=== PATIENT | male | born 1950 | race Caucasian/White ===

== ENCOUNTER 2017-04-06 00:10 | Inpatient (IN) ==
[2017-04-06] MEDS ORDERED: CARDIZEM IV ONE (00:35)
--- NOTE | 2017-04-06 00:45 | EKG Report ---
Test Performed on : 04/06/2017 00:26:04 AM Test Reason : CP Blood Pressure : / mmHG Vent. Rate : 137 BPM Atrial Rate : 136 BPM P-R Int : 000 ms QRS Dur : 142 ms QT Int : 356 ms P-R-T Axes : 000 -79 090 degrees QTc Int : 537 ms Atrial fibrillation. with rapid ventricular response. Left axis deviation Left ventricular hypertrophy with QRS widening T wave abnormality, consider lateral ischemia Abnormal ECG No previous ECGs available Unconfirmed Result
[2017-04-06 00:58] LABS: ALBUMIN 4.6 g/dL (3.5-5.0); CALCIUM 10.1 mg/dL (8.8-10.2); POTASSIUM 3.9 mmol/L (3.5-5.1); TOTAL BILIRUBIN 0.3 mg/dL (0.20-1.00); TOTAL PROTEIN 7.6 g/dL (6.3-8.3)
--- NOTE | 2017-04-06 03:44 | EKG Report ---
Test Performed on : 04/06/2017 03:17:06 AM Test Reason : pain Blood Pressure : / mmHG Vent. Rate : 114 BPM Atrial Rate : 119 BPM P-R Int : 000 ms QRS Dur : 138 ms QT Int : 364 ms P-R-T Axes : 000 -74 092 degrees QTc Int : 501 ms Wide QRS rhythm. Left axis deviation Left ventricular hypertrophy with QRS widening and repolarization abnormality Inferior infarct , age undetermined Abnormal ECG When compared with ECG of 06-APR-2017 00:26, (Unconfirmed) Wide QRS rhythm. has replaced Atrial fibrillation. Unconfirmed Result
[2017-04-06] MEDS ORDERED: TYLENOL PO PRN (04:11)
[2017-04-06] MEDS ORDERED: NS 1,000 ML IV ONE (04:11)
[2017-04-06] MEDS ORDERED: CARDIZEM 100 MG/NS 100 MG/100 ML IVPB IV SCH ×2 (04:24→10:18)
--- NOTE | 2017-04-06 04:33 | PROVIDER DOCUMENTATION ---
This chart was entered by Elinor Bailey Scribe, acting as scribe for Israel Seymour MD. HPI-Chest Pain - General Chief Complaint: Chest Pain Stated Complaint: CHEST PAIN Time Seen by Provider: 04/06/17 00:27 Source: patient - History of Present Illness-CP Nature of Presenting Problem: 66 year old M presents to the ED with a cc of palpitations and shortness of breath. Pt states that he did develop some chest pains but that has since resolved. PT states that he was sitting on couch watching TV at onset. Pt has a hx of A-Fib. Location: reports: substernal Quality of Pain: reports: aching Severity in ED: mild Onset/Duration: this evening Timing: gone now Context/Activities at Onset: reports: none Similar Symptoms Previously?: No Recently Seen Here or By Another Healthcare Provider: No Review of Systems - Adult - REVIEW OF SYSTEMS - ADULT Constitutional: denies: chills, fever Eyes: reports: no symptoms reported Ears, Nose, Mouth & Throat: reports: no symptoms reported Cardiovascular: reports: chest pain, palpitations Respiratory: reports: shortness of breath. denies: cough Gastrointestinal: reports: no symptoms reported Genitourinary: reports: no symptoms reported Musculoskeletal: reports: no symptoms reported Integumentary: reports: no symptoms reported Neurological: reports: no symptoms reported Psychiatric: reports: no symptoms reported Endocrine: reports: no symptoms reported Hematologic/Lymphatic: reports: no symptoms reported Allergic/Immunologic: reports: no symptoms reported All Other Systems: Reviewed and Negative Past History - Adult - PAST MEDICAL HISTORY-ADULT Review of Records: reports: Nursing Assessment Review, Medications Reviewed Major Childhood Illnesses: reports: denies history Cardiovascular: reports: A-Fib, HTN Endocrine/Immune: reports: Diabetes - IMMUNIZATION STATUS Childhood Immunizations: See Nurse Assessment Flu Vaccine: See Nurse Assessment - SOCIAL HISTORY Smoking: quit greater than 1 year Substance Use: none/never Alcohol Use Frequency: occasionally Physical Exam-General - PHYSICAL EXAM-ADULT Initial Vital Signs Reviewed: Yes - CONSTITUTIONAL General Appearance: appears well, alert, no apparent distress - RESPIRATORY Respiratory: chest non-tender, lungs clear, normal breath sounds - CARDIOVASCULAR Cardiovascular: tachycardia, irregularly irregular - GASTROINTESTINAL (ABDOMEN) Abdominal Exam: normal bowel sounds, non tender, soft - SKIN Integumentary: normal color, normal turgor, warm/dry - PSYCHIATRIC Psych/Mental Status: normal mood/affect, normal thought content, normal thought process, oriented x 3 Progress - PLAN OF CARE/RESULTS Progress/Plan/Lab Results: Vital Signs - 8 hr 04/06/17 00:14 Temperature 97.2 F L Pulse Rate 128 H Respiratory Rate 25 H Blood Pressure 137/94 O2 Sat by Pulse Oximetry 97 Laboratory Results - last 24 hr 04/06/17 04/06/17 04/06/17 00:30 00:30 00:30 Sodium 136 Potassium 3.9 Chloride 95 L Carbon Dioxide 26 Anion Gap 15 BUN 30 H Creatinine 1.2 Estimated GFR/1.73 m2 60 BUN/Creatinine Ratio 25 Glucose 212 H Calculated Osmolality 284 Calcium 10.1 Total Bilirubin 0.30 AST 12 ALT 12 Alkaline Phosphatase 98 Creatine Kinase 81 Troponin T [id number]-[id number] Pept 264 H Total Protein 7.6 Albumin 4.6 Globulin 3.0 Albumin/Globulin Ratio 2.0 04/06/17 04/06/17 04/06/17 00:30 03:15 03:15 Sodium Potassium Chloride Carbon Dioxide Anion Gap BUN Creatinine Estimated GFR/1.73 m2 BUN/Creatinine Ratio Glucose Calculated Osmolality Calcium Total Bilirubin AST ALT Alkaline Phosphatase Creatine Kinase 68 Troponin T < 0.010 < 0.010 Wma-N-Ojllmyitwyj Pept Total Protein Albumin Globulin Albumin/Globulin Ratio Orders Category Date Time Status Admit - [facility] Routine AdmDCTranf 04/06/17 04:11 Ordered Vital Signs Order Q 4-HR ASSESS Care 04/06/17 04:11 Active NPO Diet 04/06/17 04:13 Active CHEST-2 VIEWS [RAD] Stat Exams 04/06/17 00:23 Taken Asha [MYOCARDIAL PERF SCAN, STR/REST] [NM] Stat Exams 04/06/17 04:23 Ordered CBC WITH ELECTRONIC DIFF [HEME] Routine Lab 04/07/17 06:00 Ordered CK PROFILE [SP CHEM] Q8H Lab 04/06/17 00:30 Completed CK PROFILE [SP CHEM] Q8H Lab 04/06/17 08:30 Ordered CK PROFILE [SP CHEM] Q8H Lab 04/06/17 16:30 Ordered CK PROFILE [SP CHEM] Stat Lab 04/06/17 03:15 Completed CK PROFILE [SP CHEM] Timed Lab 04/06/17 07:15 Ordered COMPREHENSIVE METABOLIC PANEL [CHEM] Stat Lab 04/06/17 00:30 Completed DIRECT LDL [LIPIDS] Routine Lab 04/07/17 06:00 Ordered PRO B-NATRIURETIC PEPTIDE Stat Lab 04/06/17 00:30 Completed TROPONIN T Q8H Lab 04/06/17 00:30 Completed TROPONIN T Q8H Lab 04/06/17 08:30 Ordered TROPONIN T Q8H Lab 04/06/17 16:30 Ordered TROPONIN T Stat Lab 04/06/17 03:15 Completed TROPONIN T Timed Lab 04/06/17 07:15 Ordered 0.9% Sodium Chloride Inj [Ns] 1,000 ml Med 04/06/17 04:11 Active IV 150 mls/hr Acetaminophen [Tylenol] Med 04/06/17 04:11 Active 650 mg PO Q6H PRN PRN Aspirin Med 04/06/17 09:00 Ordered 325 mg PO DAILY Diltiazem 100 mg/Ns [Cardizem 100 mg/Ns] Med 04/06/17 04:24 Ordered 100 mg in 100 ml IV 5 mg/hr Diltiazem [Cardizem] Med 04/06/17 00:35 Discontinued 10 mg IV NOW ONE Flecainide [Tambocor] Med 04/06/17 09:00 Ordered 100 mg PO BID LISINOpril [Prinivil] Med 04/06/17 09:00 Ordered 20 mg PO DAILY LOVAstatin [Mevacor] Med 04/06/17 09:00 Ordered 40 mg PO DAILY Metoprolol Succinate E.r. [Toprol Xl] Med 04/06/17 09:00 Ordered 50 mg PO DAILY Telemetry [OM.EQ] Routine Oth 04/06/17 04:11 Active EKG [EKG] Stat Ther 04/06/17 00:22 Draft EKG [EKG] Stat Ther 04/06/17 03:04 Draft EKG [EKG] Stat Ther 04/06/17 07:15 Ordered Result Diagrams: 04/06/17 00:30 - EKG 1 Time of EKG reading by physician:: 00:26 EKG Read and Signed by:: Israel Seymour EKG Interpretation (*Must complete 3 of following elements*): Abnormal Rate: 137 Rhythm: A-fib with RVR Lyons: left QRS: LVH ST Wave: non-specific ST changes (T wave abnormality, consider lateral ischemia) 2 Time of EKG reading by physician:: 03:20 EKG Interpretation (*Must complete 3 of following elements*): Abnormal Rate: 114 Rhythm: regular wide based tachycardia Lyons: left QRS: NSIVCD, poor R wave progression ST Wave: normal - XRAY 1 XRAY Study: Chest Impression: Normal Departure - Departure Time of Disposition Decision: 04:08 DIAGNOSIS: Chest pain Qualifiers: Chest pain type: unspecified Qualified Code(s): R07.9 - Chest pain, unspecified Afib Qualifiers: Atrial fibrillation type: unspecified Qualified Code(s): I48.91 - Unspecified atrial fibrillation Disposition: ADMITTED INPATIENT 09 Certified Medical Emergency: Emergent Condition: Stable - Critical Care Note This patient required my direct & personal management of CC.: No This chart was documented by the indicated scribe, (Elinor Bailey Scribe) and accurately reflects the services I performed and decisions made by me, Israel Seymour MD, as attested by the provider's signature.
--- NOTE | 2017-04-06 06:02 | Diag Imaging Result Doc PS360 ---
EXAM: CHEST-2 VIEWS HISTORY: Chest Pain TECHNIQUE: COMPARISON: None. FINDINGS: The lungs are hyperexpanded. The heart is not enlarged. Pulmonary vessels are small. Mild increased AP diameter to the chest. No pleural effusions. No pneumonia. No free air beneath the diaphragm. IMPRESSION: Emphysema Electronically signed by Rene Balbuena 04/06/2017 6:00 AM
--- NOTE | 2017-04-06 06:14 | EKG Report ---
Test Performed on : 04/06/2017 06:06:22 AM Test Reason : cp, third set Blood Pressure : / mmHG Vent. Rate : 115 BPM Atrial Rate : 115 BPM P-R Int : 150 ms QRS Dur : 138 ms QT Int : 362 ms P-R-T Axes : 000 -76 086 degrees QTc Int : 500 ms Sinus tachycardia. Left axis deviation Nonspecific intraventricular block Abnormal ECG When compared with ECG of 06-APR-2017 03:17, Sinus rhythm. has replaced Wide QRS rhythm. Confirmed by Israel Seymour MD ([id number]) on 04/07/2017 9:58:47 PM
[2017-04-06] MEDS ORDERED: TOPROL XL PO SCH (09:00)
[2017-04-06] MEDS ORDERED: ASPIRIN PO SCH (09:00)
[2017-04-06] MEDS ORDERED: TAMBOCOR PO SCH ×2 (09:00→21:00)
[2017-04-06] MEDS ORDERED: PRINIVIL PO SCH (09:00)
[2017-04-06 09:57] LABS: MANUAL DIFF NEEDED? NO
--- NOTE | 2017-04-06 10:01 | EKG Report ---
Test Performed on : 04/06/2017 09:54:03 AM Test Reason : a.fib r/o - pt on Cardizem GTT Blood Pressure : / mmHG Vent. Rate : 129 BPM Atrial Rate : 125 BPM P-R Int : 000 ms QRS Dur : 134 ms QT Int : 356 ms P-R-T Axes : 000 -78 088 degrees QTc Int : 521 ms Atrial fibrillation. with rapid ventricular response. Left axis deviation Nonspecific intraventricular block Abnormal ECG When compared with ECG of 06-APR-2017 09:53, (Unconfirmed) No significant change was found Confirmed by Israel Seymour MD ([id number]) on 04/07/2017 9:52:52 PM
[2017-04-06 10:08] LABS: BASO% 0.5 % (0.0-0.8); EOS# 0.16 X1000 (0.0-0.7); EOS% 1.9 % (0.0-10.0); HEMATOCRIT 43.3 % (42.0-52.0); HEMOGLOBIN 14.6 g/dL (14.0-18.0); IMM GRAN# 0.02 X1000 (0.0-0.04); IMM GRAN% 0.2 % (0.0-0.5); LYMPH# 2.31 X1000 (1.2-3.4); LYMPH% 28.1 % (20.5-51.1); MCH 31.8 PG (27-31); MCHC 33.7 g/dL (33-37); MCV 94.3 FL (81-99); MONO# 0.59 X1000 (0.11-0.59); MONO% 7.2 % (1.7-9.3); NEUT% 62.1 % (42.2-75.2); PLT 134 X1000 (130-400); RBC 4.59 XMIL (4.7-6.1)
[2017-04-06] MEDS ORDERED: IMDUR PO SCH (10:30)
[2017-04-06 10:40] LABS: AGAP 12; ALBUMIN 4.1 g/dL (3.5-5.0); ALKALINE PHOSPHATASE 90 U/L (32-122); BUN 27 mg/dL (8-22); CALCIUM 9.9 mg/dL (8.8-10.2); CHLORIDE 99 mmol/L (98-107); COSMO 285; GOT 12 U/L (10-34); GPT 11 U/L (10-44); POTASSIUM 4.6 mmol/L (3.5-5.1); SODIUM 136 mmol/L (136-145); TCO2 26 mmol/L (25-35); TOTAL PROTEIN 6.9 g/dL (6.3-8.3)
[2017-04-06] MEDS: GLUCOPHAGE PO SCH ×2 (11:03→16:48)
[2017-04-06] MEDS: AMARYL PO SCH ×2 (11:03→16:48)
[2017-04-06] MEDS ORDERED: LOVENOX SUBQ SCH (11:30)
--- NOTE | 2017-04-06 12:07 | HISTORY AND PHYSICAL ---
CHIEF COMPLAINT: Chest pain, palpitations. HISTORY OF PRESENT ILLNESS: This is a 66-year-old male with atrial fibrillation who presents with palpitations, shortness of breath, and chest pain. He has had some intermittent chest pains, mostly on the left side, radiating to his neck and back. He was just at rest. Apparently, he takes aspirin 325 twice a day because he felt that it was helping his chest pains. He did come in with atrial fibrillation with rapid ventricular response and had been placed on a Cardizem drip, from which now he has spontaneously converted back to a normal sinus rhythm; however, initially, he had not, and his chest pains have improved since he has been rate controlled and rhythm controlled. He had a stress test, he says, about 2 years ago and it was negative. Apparently, he has been due to get a stress test, but reportedly I think he has been reluctant because he is concerned he probably does have coronary artery disease, but he is very against getting a cardiac catheterization because apparently his underwent that procedure, possibly even cardiothoracic surgery, and she during the process, so he is very reluctant to pursue instrumentation. Patient admitted for atrial fibrillation with RVR and chest pain. PAST MEDICAL HISTORY: 1. Atrial fibrillation. 2. Diabetes. 3. Hypertension. 4. Dyslipidemia. PAST SURGICAL HISTORY: I do not think he has had any major events. SOCIAL HISTORY: He does smoke. He says he smokes. According to this, it says he quit over a year ago, but he says he smokes a pack a day and he has done that for 40 years, so I am not sure. He occasionally uses alcohol, about 3-4 beers at a time, maybe on a weekly basis. ALLERGIES: No known drug allergies. MEDICATIONS: Aspirin 81 b.i.d., so maybe he only takes 81 b.i.d. Lipitor 20 daily. Wellbutrin 150 daily. Tambocor 100 b.i.d. Glimepiride 4 b.i.d. Imdur 30 daily. Meloxicam 7.5 daily. Glucophage 1 g b.i.d. Toprol-XL 50 daily. REVIEW OF SYSTEMS: Otherwise negative on 10-point review of systems. FAMILY HISTORY: Positive for CAD in mother, father, 2 brothers, and a sister. Multiple family members with CAD in their early 40s to 50s. PHYSICAL EXAMINATION: VITAL SIGNS: Blood pressure 112/53, heart rate 64, respiratory rate 27, temperature 98 degrees, and 94% on room air. LABORATORY DATA: Normal CBC. Normal CMP. proBNP is only 264. Glucose was 240. EKG showed atrial fibrillation with rapid ventricular response on admission and it looks like LVH. EKG now showed kind of like a left bundle-type pattern, but we will follow in any case. ASSESSMENT: 1. A 66-year-old male who came in with atrial fibrillation with rapid ventricular response and chest pains. He is admitted for treatment. He appears to be rate controlled and rhythm controlled now on Tambocor and Toprol. I have added low-dose Cardizem until Cardiology can evaluate. We will obtain an echo and follow. I strongly encouraged him to get evaluated with a stress test. He wants to go home. If he is stable this afternoon, we will discuss with Cardiology about that plan. 2. Diabetes. Continue his regular medications and follow. 3. Hypertension. Appears to be stable. 4. Chest pain. Again, he has multiple risk factors; diabetes, smoker, family history. He is already on aspirin. EKG is abnormal, but I do not think this is changed from baseline, but I would say his CONI score is at least greater than 3 and I think noninvasive imaging is recommended, but we will follow accordingly. Again, the patient has some barriers to completing that care because of history associated with the testing, but, in any case, the patient is stable. cc: MD Dr. Tacho Ontiveros in [place]
[2017-04-06] MEDS: CARDIZEM PO SCH ×2 (13:19→16:48)
--- NOTE | 2017-04-06 14:35 | EKG Report ---
Test Performed on : 04/06/2017 11:00:13 AM Test Reason : rhythm change Blood Pressure : / mmHG Vent. Rate : 062 BPM Atrial Rate : 062 BPM P-R Int : 232 ms QRS Dur : 140 ms QT Int : 434 ms P-R-T Axes : 083 -76 082 degrees QTc Int : 440 ms Sinus rhythm. with 1st degree AV block. Left axis deviation Nonspecific intraventricular block Abnormal ECG When compared with ECG of 06-APR-2017 09:54, (Unconfirmed) Sinus rhythm. has replaced Atrial fibrillation. Vent. rate has decreased BY 67 BPM Confirmed by Israel Seymour MD ([id number]) on 04/07/2017 9:51:46 PM
--- NOTE | 2017-04-06 15:04 | ECHO REPORT ---
ORDER DATE: 04/06/2017 Technically suboptimal study. Very poor acoustic window. ECHOCARDIOGRAPHIC MEASUREMENTS: 1. Interventricular septum 1.4. Left ventricular posterior wall 1.3. Diastolic diameter 3.7. Left atrium 4. Aorta 3.1. 2. Aortic valve leaflets were sclerosed, not well visualized, trileaflet. 3. Pulmonic valve was normal. There is trace pulmonary regurgitation. 4. Normal left ventricular cavity size. Estimated ejection fraction of 55%. Endocardium not well visualized in all views. Tricuspid valve was normal. Mitral valve leaflets mildly thickened. There was moderate mitral annular calcification. 5. There is mild mitral regurgitation. 6. Peak velocity across the aortic valve less than 2 m/sec. There is no aortic stenosis. There is aortic sclerosis associated with mild aortic regurgitation. Mild tricuspid regurgitation noted. Peak velocity across the tricuspid valve was 2.9 m/sec. Pulmonary artery systolic pressure 42 mmHg. 7. There is no pericardial effusion or obvious intracardiac mass or thrombus seen. cc: MD Ben Faith MD
[2017-04-06 15:07] VITALS: BP 98/44
--- NOTE | 2017-04-06 17:20 | CONSULTATION ---
DATE OF CONSULTATION: 04/06/2017 INDICATION FOR THE CONSULTATION: Atrial fibrillation with rapid ventricular response and chest pain. HISTORY OF PRESENT ILLNESS: Mr. Titus is a 66-year-old white male with a history of paroxysmal atrial fibrillation maintained on flecainide as an outpatient. He previously saw some physician over at the [facility], but has not been back to see them in the last 2-3 years. He previously was on warfarin, but for some reason he is no longer on that medication. He subsequently presented for evaluation of heart racing and chest discomfort that began last night while he was lying on the couch. He said it felt like some tightness and he had some heart racing. He presented to the ER and was found to be in what appears to be atrial fibrillation with a rate of 137 beats per minute. He has a baseline nonspecific intraventricular conduction delay, which appears more of a left bundle type pattern. He subsequently was admitted to the ICU placed on a diltiazem infusion, resumed back on his flecainide and he converted back to sinus rhythm on his own. Today he is not interested in having any further testing. He is not interested in having stress testing nor is he interested in having a heart catheterization. He seems to be aware that this limits our ability to diagnose the etiology of chest pain, but says he is not really interested in having any of those things done. He is not interested in initiating anticoagulation either, even knowing the risk of stroke associated with atrial fibrillation. PAST MEDICAL HISTORY: His past medical history is significant for: 1. Hypertension. 2. Diabetes. 3. Paroxysmal atrial fibrillation. 4. Hyperlipidemia. SOCIAL HISTORY: He does smoke. He occasionally uses alcohol, roughly 3-4 drinks on a weekly basis. FAMILY HISTORY: Significant for coronary disease in mother and father as well as siblings. REVIEW OF SYSTEMS: A 10 system review of systems is negative except for those things mentioned in HPI. PHYSICAL EXAMINATION: Vital signs: He is afebrile. His heart rate is 67. His blood pressure is 98/44. General: He is in no acute distress. HEENT: Oropharynx is moist. Normal dentition. Eye examination is pink conjunctivae, white sclerae. Neck: Examination shows no obvious thyromegaly or thyroid tenderness. Cardiovascular: He is in a regular rate and rhythm presently. He has no lower extremity edema. No carotid bruits. Chest: Exam is clear to auscultation bilaterally. He has no increased work of breathing. Abdomen: Soft, nontender, nondistended. He has no obvious organomegaly. Skin: Warm and dry throughout. Neurological: He is moving all extremities well. Cranial nerves 2-12 are intact without any sensation deficits. Psychiatric: He is alert, oriented, pleasant. He has normal mood and affect. PERTINENT DATA: His EKG on presentation shows atrial fibrillation, rate of 137 beats per minute. He does have a nonspecific intraventricular conduction delay. His final EKG checked here today shows sinus rhythm. Again, baseline nonspecific intraventricular conduction delay. He had an echocardiogram which demonstrated mild left ventricular hypertrophy, normal EF with no evidence of aortic stenosis, RV systolic pressure of 42, mild mitral regurgitation. He had a chest x-ray done, which showed emphysematous changes. His laboratory data was reviewed. White count 8.2, hematocrit 43. Sodium 136, BUN 27, creatinine 0.9. Cardiac enzymes negative. ProBNP 264. ASSESSMENT: 1. Chest discomfort. 2. Paroxysmal atrial fibrillation. PLAN: The patient is not interested in having any sort of stress testing or cardiac catheterization. This seems to stem from issues his had during coronary bypass surgery, which ultimately led to her passing away around a week later. He seems somewhat depressed, but is not suicidal presently. He is not interested in having any further evaluation, but would be willing to follow up with me in the office. I will plan on seeing him in 1-2 weeks. I would continue him on the current medications. He is not interested in having anticoagulation initiated presently, so I would just continue him on the current aspirin. We will discuss this further with him as an outpatient and hopefully we can get him to at least consent to some noninvasive testing because I do think it would be reasonable to do a stress test, considering his medical history and his complaints, but presently considering he is not interested in having these done, I do not see the necessity to keep him in the hospital presently. cc: Fabrice Elmore MD
[2017-04-06] MEDS ORDERED: MEVACOR PO SCH (21:00)
[2017-04-07] MEDS ORDERED: WELLBUTRIN XL PO SCH (09:00)
[2017-04-07] MEDS ORDERED: MOBIC PO SCH (09:00)
[2017-04-07] MEDS ORDERED: LIPITOR PO SCH (21:00)
--- NOTE | 2017-04-10 17:42 | DISCHARGE SUMMARY ---
ADMISSION DATE: 04/06/2017 DISCHARGE DATE: 04/06/2017 DIAGNOSES: 1. Chest pain. 2. Paroxysmal atrial fibrillation, resolved. 3. Hypertension. 4. Diabetes. 5. Hyperlipidemia. DIAGNOSTICS: On 04/06/2017, chest x-ray reveals emphysema, echocardiogram reveals normal left ventricular cavity size with an EF of 55%. No pericardial effusion or obvious intracardiac mass or thrombus seen. CONSULTS: Dr. Fabrice Elmore in Cardiology. HOSPITAL COURSE: Mr. Titus presented to the emergency room complaining of shortness of breath and chest pain. He was found to be in atrial fibrillation, RVR, with a heart rate of 137. He was admitted to ICU, placed on a Cardizem infusion and resumed back on his flecainide and he converted spontaneously back to sinus rhythm and had remained there. Enzymes were negative. He does have this history of atrial fibrillation in the past. He had been placed on, I think, warfarin although he stopped sometime in the last 2-3 years. It was discussed with him the importance of anticoagulation as well as the high risk of having a stroke per Dr. Hemphill as well as Dr. Fabrice Elmore. The patient was not interested in having anticoagulation initiated, although he did agree to taking aspirin. The patient has room refused any further testing, as his during the process of a cardiac evaluation. After discussing with Dr. Hemphill as well as Dr. Elmore he continued to refuse any further testing. PHYSICAL EXAMINATION: Cardiovascular: Regular rate and rhythm. S1 and S2 appreciated. Pulmonary: Breath sounds are clear with no increased work of breathing noted. Gastrointestinal: Abdomen is soft, nontender, nondistended with bowel sounds in all 4 quadrants. Extremities: No clubbing, cyanosis, or edema. Pulses are palpable x4. Calves are nontender. Neurologic: He is alert and oriented x3. DISCHARGE MEDICATIONS: Aspirin 81 mg daily. Lipitor 20 mg daily. Wellbutrin 150 daily. Tambocor 100 b.i.d. Meloxicam 7.5 daily. Glimepiride 4 daily. Glucophage 1000 b.i.d. Imdur 30 daily. Toprol-XL 75 mg daily. DISCHARGE ACTIVITY: As tolerated. DISCHARGE VITAL SIGNS: Blood pressure is 112/53, with a heart rate of 64, respirations are 20, temperature is 98.1 degrees with room air saturations of 93%. FOLLOWUP: He is to follow up with Dr. Fabrice Elmore in 1-2 weeks, and Dr. Forte, his primary care physician, in the next 2-4 weeks. DISPOSITION: He is being discharged home in stable condition with family members. TIME SPENT: This is a greater than 30 minute discharge. Dictated by PRISCA Mclean for Ben Hemphill MD cc: PRISCA Mclean MD
== END 2017-04-06 17:33 | disposition home or self-care (01) ==
LOC: P.ICU 00:10 → P.ED 00:10 → OBSVTOIN 04:25
PROVIDERS: ATTEND Internal Medicine

== ENCOUNTER 2019-06-05 08:57 | Inpatient (IN) ==
--- NOTE | 2019-06-05 10:02 | Diag Imaging Result Doc PS360 ---
EXAM: CHEST-2 VIEWS HISTORY: sob TECHNIQUE: Chest two views COMPARISON: 11/08/2017 FINDINGS: The lungs are well expanded. The heart is not enlarged. The vessels are not distended. Right-sided pacemaker has been placed since the prior study. There is a small right pleural effusion with right basilar atelectasis and possibly and underlying infiltrate. IMPRESSION: Right pleural effusion with basilar atelectasis and/or a small infiltrate. Electronically signed by Rene Balbuena 06/05/2019 9:59 AM
[2019-06-05] MEDS ORDERED: PULMICORT INH ONE (10:13)
[2019-06-05] MEDS ORDERED: DUONEB (A & A) INH ONE (10:13)
[2019-06-05] MEDS ORDERED: SOLU-MEDROL IV ONE (10:13)
[2019-06-05] MEDS ORDERED: ROCEPHIN 1 GM in NS 50 ML IV ONE (10:13)
[2019-06-05] MEDS ORDERED: ALBUTEROL NEB INH ONE (10:13)
[2019-06-05] MEDS ORDERED: ZITHROMAX PO ONE (10:15)
[2019-06-05 10:33] LABS: BE 17.7 mmoll (-3.0-3.0); BLOOD TYPE ARTERIAL; HCO3-(ACT) 38.7 mmoll (20.0-26.0); O2(CT) 7.4 mL/dL (15.0-23.0); O2HB 93.8 % (95.0-99.0); PO2(98.6) 86 mmHg (60-100); SAMPLE BLOOD; THB 5.5 g/dL (11.5-17.4); pH(98.6) 7.47 (7.35-7.45)
[2019-06-05 10:38] LABS: ALLEN TEST YES; MODALITY CANNULA; PCO2(98.6) 59 mmHg (35-45)
--- NOTE | 2019-06-05 10:59 | EKG Report ---
Test Performed on : 06/05/2019 09:40:46 AM Test Reason : sob Blood Pressure : / mmHG Vent. Rate : 082 BPM Atrial Rate : 097 BPM P-R Int : 000 ms QRS Dur : 184 ms QT Int : 460 ms P-R-T Axes : 114 -73 087 degrees QTc Int : 537 ms Sinus rhythm. with complete heart block. and Wide QRS rhythm. with frequent ventricular-paced complex es and with occasional premature ventricular complexes. Left axis deviation Nonspecific intraventricular block Possible Lateral infarct , age undetermined Inferior infarct , age undetermined Abnormal ECG When compared with ECG of 09-NOV-2017 03:33, Electronic ventricular pacemaker has replaced Sinus rhythm. Unconfirmed Result
[2019-06-05 11:06] LABS: BASO# 0.03 X1000 (0.0-0.2); BASO% 0.4 % (0.0-0.8); EOS# 0.05 X1000 (0.0-0.7); EOS% 0.6 % (0.0-10.0); HEMATOCRIT 34.6 % (42.0-52.0); HEMOGLOBIN 10.4 g/dL (14.0-18.0); IMM GRAN# 0.01 X1000 (0.0-0.04); IMM GRAN% 0.1 % (0.0-0.5); LYMPH# 0.63 X1000 (1.2-3.4); MCH 28.5 PG (27-31); MCHC 30.1 g/dL (33-37); MCV 94.8 FL (81-99); MONO# 0.63 X1000 (0.11-0.59); MPV 11.4 FL (7.4-10.4); NEUT% 82.9 % (42.2-75.2); PLT 157 X1000 (130-400); RBC 3.65 XMIL (4.7-6.1); RDW 17.4 % (11.5-14.5); WBC 7.85 X1000 (4.8-10.8)
[2019-06-05 11:19] LABS: AGAP 12; ALKALINE PHOSPHATASE 114 U/L (32-122); BUN 19 mg/dL (8-22); CHLORIDE 95 mmol/L (98-107); CK PROFILE 62 U/L (24-204); COSMO 288; CREATININE 0.7 mg/dL (0.7-1.2); ESTIMATED GFR > 60; GLUCOSE 220 mg/dL (70-104); GOT 13 U/L (10-34); GPT 6 U/L (10-44); POTASSIUM 4.2 mmol/L (3.5-5.1); SODIUM 140 mmol/L (136-145); TCO2 33 mmol/L (25-35); TOTAL PROTEIN 7.2 g/dL (6.3-8.3)
[2019-06-05 12:25] LABS: INR 1.05; PROTIME 14.2 Seconds (11.0-16.0)
[2019-06-05 12:26] LABS: PTT 29.7 Seconds (22.3-41.8)
--- NOTE | 2019-06-05 12:55 | Diag Imaging Result Doc PS360 ---
CT THORAX W/CONTRAST - 06/05/2019 INDICATION: new R pleural effusion COMPARISON: 11/08/2017 FINDINGS: A left arm contrast injection was performed. Essentially all the contrast goes down a left superior vena cava. A tiny connection was filled with contrast, extending through the expected course of a left brachiocephalic vein. However the essentially none of this emptied into the right superior vena cava. There is a right-sided dual-chamber pacemaker. There is a stable stent in the left common carotid origin. Heavy vascular disease, especially coronary artery disease. There is a new metallic device in the left atrial appendage which appears to be an atrial appendage occluder. There is a moderate right and trace left pleural effusion. There is diffuse interstitial groundglass opacity bilaterally compatible with pulmonary edema. There is significant body wall edema. There is trace ascites in the upper abdomen. There are moderate degenerative changes of the spine. No acute or suspicious bony lesion. IMPRESSION: Cardiomegaly. Interstitial pulmonary edema. Bilateral pleural effusions right greater than left. Severe vascular disease. This exam was performed using automated exposure control, adjustment of mA or kV according to patient size, and/or use of iterative reconstruction technique Electronically signed by Alfredo Higgins 06/05/2019 12:53 PM
--- NOTE | 2019-06-05 13:11 | PROVIDER DOCUMENTATION ---
This chart was entered by Cynthia Massey Scribe, acting as scribe for Freddy Monet MD. HPI-Respiratory General - General Chief Complaint: Shortness of Breath Stated Complaint: SOB Time Seen by Provider: 06/05/19 09:58 Source: patient Allergies/Adverse Reactions: Patient Allergies Allergy/AdvReac Type Severity Reaction Status Date / Time No Known Allergies Allergy Verified 11/08/17 10:58 Home Medications: Home Medication List Medication Instructions Recorded Confirmed Last Taken Type ATORVAstatin [Lipitor] 20 mg PO QHS 04/06/17 11/09/17 Unknown History Blood-Glucose Meter [Truetrack 1 each MC BID 04/06/17 04/06/17 Unknown History Smart System] Bupropion [Wellbutrin] 150 mg PO DAILY 04/06/17 11/09/17 Unknown History Glimepiride 4 mg PO BID 04/06/17 11/09/17 Unknown History Lancets 1 each ORDERED BID 04/06/17 04/06/17 Unknown History Metformin [Glucophage] 1,000 mg PO BID 04/06/17 11/09/17 Unknown History Amlodipine Besylate 2.5 mg PO DAILY 11/09/17 11/09/17 Unknown History Omeprazole 40 mg PO DAILY 11/09/17 11/09/17 Unknown History Acetaminophen [Tylenol] 650 mg PO Q6H PRN PRN tablet 11/12/17 Unknown Rx Amiodarone [Cordarone] 400 mg PO BID #60 tab 11/12/17 Unknown Rx Azithromycin [Zithromax] 500 mg PO DAILY #3 tab 11/12/17 Unknown Rx Clopidogrel [Plavix] 75 mg PO DAILY #90 tab 11/12/17 Unknown Rx Warfarin [Coumadin] 10 mg PO QHS #30 tab 11/12/17 Unknown Rx - History of Present Illness-Resp Nature of Presenting Problem: Patient is a 68 year old male who presents with shortness of breath. States shortness of breath has been present for 1 month. Reports seeing PCP and was informed his shortness of breath was from his low blood count. Denies fever, orthopnea and chest pain. States having swelling in bilateral lower extremities and a nonproductive cough. Quality of Pain: reports: tightness Severity in ED: reports: mild Onset/Duration: reports: other (1 month) Timing: reports: still present Cough Quality/Degree: reports: moderate, dry cough Current Respiratory Medication Therapy: Initiated see nurses note Modifying Factors: worse with: exertion Associated Symptoms: reports: cough, shortness of breath Similar Symptoms Previously?: Yes Recently seen or treated by another doctor?: Yes Review of Systems - Adult - REVIEW OF SYSTEMS - ADULT Constitutional: reports: no symptoms reported. denies: chills, fever, fatique Eyes: reports: no symptoms reported Ears, Nose, Mouth & Throat: reports: no symptoms reported Cardiovascular: reports: no symptoms reported. denies: chest pain, irregular heart rate, orthopnea Respiratory: reports: see HPI, cough, shortness of breath. denies: wheezing Gastrointestinal: reports: no symptoms reported. denies: abdominal pain, diarrhea, nausea, vomiting Genitourinary: reports: no symptoms reported Musculoskeletal: reports: no symptoms reported Integumentary: reports: no symptoms reported Neurological: reports: no symptoms reported Psychiatric: reports: no symptoms reported Endocrine: reports: no symptoms reported Hematologic/Lymphatic: reports: no symptoms reported Allergic/Immunologic: reports: no symptoms reported All Other Systems: Reviewed and Negative Past History - Adult - PAST MEDICAL HISTORY-ADULT Review of Records: reports: Old Records Reviewed, Nursing Assessment Review, Medications Reviewed, Social history reviewed & non-contributory. Major Childhood Illnesses: reports: denies history Cardiovascular: reports: A-Fib, HTN Respiratory: reports: COPD Gastrointestinal: reports: denies history Obstetrical/Gynecological: reports: denies history Genitourinary: reports: denies history Musculoskeletal: reports: denies history Neurological: reports: CVA, TIA Endocrine/Immune: reports: Diabetes Other Conditions: reports: denies history - PRIOR SURGERIES/PROCEDURES Surgical/Procedure History: reports: reviewed, not pertinent - IMMUNIZATION STATUS Childhood Immunizations: See Nurse Assessment Flu Vaccine: See Nurse Assessment - FAMILY HISTORY Family History: reviewed, not pertinent - SOCIAL HISTORY Smoking: cigarettes, greater than 1 pack/day Provider spent 3-5 mins advising pt. on dangers of tobacco.: Discussed manners to quit use, and f/u contacts for add'l counseling. Substance Use: denies Physical Exam-General - PHYSICAL EXAM-ADULT Initial Vital Signs Reviewed: Yes - CONSTITUTIONAL General Appearance: alert, no apparent distress. negative: lethargic - HEAD, EARS, NOSE, MOUTH & THROAT HENMT: normocephalic/atraumatic, moist mucous membranes. negative: angioedema - RESPIRATORY Respiratory: chest non-tender, wheezing (coarse expiratory and inspiratory whee zing bilaterally.). negative: crackles - CARDIOVASCULAR Cardiovascular: normal peripheral pulses, regular rate, rhythm. negative: tachycardia - MUSCULOSKELETAL Extremity: non-tender, other (3 + pitting edema to bilateral lower extremities.) . negative: deformity, erythema - SKIN Integumentary: normal color, normal turgor, warm/dry. negative: cyanosis, ecchymosis, jaundice - NEUROLOGIC Neurologic: grossly normal. negative: aphasia, facial droop - PSYCHIATRIC Psych/Mental Status: normal mood/affect, oriented x 3. negative: anxious Progress - PLAN OF CARE/RESULTS Progress/Plan/Lab Results: Vital Signs - 8 hr 06/05/19 09:15 06/05/19 10:30 06/05/19 11:14 Temperature 98 F Pulse Rate 80 80 80 Respiratory Rate 28 H 22 32 H Blood Pressure 158/75 168/85 O2 Sat by Pulse Oximetry 89 L 98 97 06/05/19 12:30 Temperature Pulse Rate 80 Respiratory Rate 20 Blood Pressure 159/75 O2 Sat by Pulse Oximetry 94 L Laboratory Results - last 24 hr 06/05/19 06/05/19 06/05/19 10:15 10:47 10:47 WBC 7.85 RBC 3.65 L Hgb 10.4 L Hct 34.6 L MCV 94.8 MCH 28.5 MCHC 30.1 L RDW Std Deviation 17.4 H Plt Count 157 MPV 11.4 H Immature Gran % (Auto) 0.1 Neut % (Auto) 82.9 H Lymph % (Auto) 8.0 L [place] % (Auto) 8.0 Eos % (Auto) 0.6 Baso % (Auto) 0.4 Immature Gran # (Auto) 0.01 Neut # (Auto) 6.50 Lymph # (Auto) 0.63 L [place] # (Auto) 0.63 H Eos # (Auto) 0.05 Baso # (Auto) 0.03 PT INR PTT (Actin FS) Specimen Type ARTERIAL Sample Site R RADIAL pH 7.47 H pCO2 59 H* pO2 86 HCO3 38.7 H Base Excess 17.7 H Oxyhemoglobin 93.8 L ABG O2 Sat (Calculated) 7.4 L ABG O2 Saturation 100.0 ABG Carboxyhemoglobin 5.20 H* ABG Methemoglobin 1.0 Mikel Test YES A-a O2 Difference 68.0 Total Hemoglobin 5.5 L Lactate 1.80 Liter Flow 3.0 Blood Gas Modality CANNULA FiO2 % 32.0 Sodium 140 Potassium 4.2 Chloride 95 L Carbon Dioxide 33 Anion Gap 12 BUN 19 Creatinine 0.7 Estimated GFR/1.73 m2 > 60 BUN/Creatinine Ratio 27 Glucose 220 H Calculated Osmolality 288 Calcium 9.0 Total Bilirubin 0.90 AST 13 ALT 6 L Alkaline Phosphatase 114 Creatine Kinase 62 Troponin T [id number] Pept Total Protein 7.2 Albumin 4.0 Globulin 3.0 Albumin/Globulin Ratio 1.0 06/05/19 06/05/19 06/05/19 10:47 10:47 11:15 WBC RBC Hgb Hct MCV MCH MCHC RDW Std Deviation Plt Count MPV Immature Gran % (Auto) Neut % (Auto) Lymph % (Auto) [place] % (Auto) Eos % (Auto) Baso % (Auto) Immature Gran # (Auto) Neut # (Auto) Lymph # (Auto) [place] # (Auto) Eos # (Auto) Baso # (Auto) PT 14.2 INR 1.05 PTT (Actin FS) 29.7 Specimen Type Sample Site pH pCO2 pO2 HCO3 Base Excess Oxyhemoglobin ABG O2 Sat (Calculated) ABG O2 Saturation ABG Carboxyhemoglobin ABG Methemoglobin Mikel Test A-a O2 Difference Total Hemoglobin Lactate Liter Flow Blood Gas Modality FiO2 % Sodium Potassium Chloride Carbon Dioxide Anion Gap BUN Creatinine Estimated GFR/1.73 m2 BUN/Creatinine Ratio Glucose Calculated Osmolality Calcium Total Bilirubin AST ALT Alkaline Phosphatase Creatine Kinase Troponin T < 0.010 [id number]-Rslwuwwjzrq Pept 2787 H Total Protein Albumin Globulin Albumin/Globulin Ratio Orders Category Date Time Status Cardiac Monitoring DIRECTED Care 06/05/19 09:24 Active Oxygen Therapy- ED Nursing DIRECTED Care 06/05/19 09:24 Active Saline Loc NOW Care 06/05/19 09:24 Active CHEST-2 VIEWS [RAD] Stat Exams 06/05/19 09:[address] THORAX W/CONTRAST [CT] Stat Exams 06/05/19 10:14 Completed ABG [RESP] Routine Lab 06/05/19 10:15 Completed CBC WITH ELECTRONIC DIFF [HEME] Stat Lab 06/05/19 10:47 Completed CK PROFILE [SP CHEM] Stat Lab 06/05/19 10:47 Completed COMPREHENSIVE METABOLIC PANEL [CHEM] Stat Lab 06/05/19 10:47 Completed PRO B-NATRIURETIC PEPTIDE Stat Lab 06/05/19 10:47 Completed PROTIME WITH INR [COAG] Stat Lab 06/05/19 11:15 Completed PTT [COAG] Stat Lab 06/05/19 11:15 Completed TROPONIN T Stat Lab 06/05/19 10:47 Completed Albuterol 2.5MG/Ipratrop 0.5MG [Duoneb (A & A)] Med 06/05/19 10:13 Discontinued 3 ml INH NOW ONE Albuterol [Albuterol Neb] Med 06/05/19 10:13 Discontinued 5 mg INH NOW ONE Azithromycin [Zithromax] Med 06/05/19 10:15 Discontinued 500 mg PO NOW ONE Budesonide [Pulmicort] Med 06/05/19 10:13 Discontinued 0.5 mg INH NOW ONE CefTRIAXONE [Rocephin] 1 gm Med 06/05/19 10:13 Discontinued 0.9% Sodium Chloride Inj [Ns] 50 ml IV NOW Methylprednisolone Sod Succ [Solu-Medrol] Med 06/05/19 10:13 Discontinued 125 mg IV NOW ONE Aerosol Treatments Routine Oth 06/05/19 10:14 Completed Aerosol Treatments Stat Oth 06/05/19 10:14 Completed CP/SOB/Palp >45 yrs of Age Stat Oth 06/05/19 09:24 Ordered EKG [EKG] Stat Ther 06/05/19 09:24 Draft Result Diagrams: 06/05/19 10:47 06/05/19 10:47 - EKG 1 Time of EKG reading by physician:: 09:40 EKG Read and Signed by:: Freddy Monet EKG Interpretation (*Must complete 3 of following elements*): Abnormal (rhythm - sinus rhythm with complete heart block and wide QRS rhythm with frequent ventricular-paced complexes and with occasional premature ventricular complexes. possible lateral infarct, age undetermined. inferior infarct, age undetermined) Rate: 82 [place]: left Comments: nonspecific intraventricular block; - XRAY 1 XRAY Study: Chest Impression: See EMR Report (EXAM: CHEST-2 VIEWS HISTORY: sob TECHNIQUE: Chest two views COMPARISON: 11/08/2017 FINDINGS: The lungs are well expanded. The heart is not enlarged. The vessels are not distended. Right-sided pacemaker has been placed since the prior study. There is a small right pleural effusion with right basilar atelectasis and possibly and underlying infiltrate. IMPRESSION: Right pleural effusion with basilar atelectasis and/or a small infiltrate. Electronically signed by Rene Balbuena 06/05/2019 9:59 AM 06/05/19 0959 Interpreting Physician: Rene Balbuena MD Dictated Date/Time: 06/05/19 0959 cc: Freddy Monet MD; James Titus MD) - CT/MRI 1 CT Study: Thorax Impression: See EMR Report ( CT THORAX W/CONTRAST - 06/05/2019 INDICATION: new R pleural effusion COMPARISON: 11/08/2017 FINDINGS: A left arm contrast injection was performed. Essentially all the contrast goes down a left superior vena cava. A tiny connection was filled with contrast, extending through the expected course of a left brachiocephalic vein. However the essentially none of this emptied into the right superior vena cava. There is a right-sided dual-chamber pacemaker. There is a stable stent in the left common carotid origin. Heavy vascular disease, especially coronary artery disease. There is a new metallic device in the left atrial appendage which appears to be an atrial appendage occluder. There is a moderate right and trace left pleural effusion. There is diffuse interstitial groundglass opacity bilaterally compatible with pulmonary edema. There is significant body wall edema. There is trace ascites in the upper abdomen. There are moderate degenerative changes of the spine. No acute or suspicious bony lesion. IMPRESSION: Cardiomegaly. Interstitial pulmonary edema. Bilateral pleural effusions right greater than left. Severe vascular disease. This exam was performed using automated exposure control, adjustment of mA or kV according to patient size, and/or use of iterative reconstruction technique Electronically signed by Alfredo Higgins 06/05/2019 12:53 PM 06/05/19 1253 Interpreting Physician: Alfredo Higgins MD Dictated Date/Time: 06/05/19 1245 cc: Freddy Monet MD; James Titus MD) - CONSULTS/PCP/HOSPITALIST Notification #1 *Consult/PCP/Hospitalist*: Dr. Mejia Time Discussed: 13:07 Reason/Comments: Dr. Monet consulted with Dr. Mejia about patient. Consult Disposition: Will see in ED, Admit Departure - Departure Date of Disposition Decision: 06/05/19 Time of Disposition Decision: 13:08 DIAGNOSIS: Pulmonary edema Qualifiers: Chronicity: acute Qualified Code(s): J81.0 - Acute pulmonary edema Disposition: ADMITTED INPATIENT 09 Certified Medical Emergency: Emergent Condition: Fair Referrals and Follow-Ups: James Titus MD [Primary Care Provider] - - Critical Care Note This patient required my direct & personal management of CC.: No Attestation - Physician/ DAVE Attestation Patient care was provided by Advanced Practice Provider:: No The physician spent face to face time with patient:: Yes Advanced Practice Provider documentation review:: Supervising physician onsite and consulted in the evaluation and care of this patient. The physician did have a face to face encounter with the patient. This chart was documented by the indicated scribe, (Cynthia Massey Scribe) and accurately reflects the services I performed and decisions made by me, Freddy Monet MD, as attested by the provider's signature.
[2019-06-05] MEDS ORDERED: LASIX IV ONE (14:10)
[2019-06-05] MEDS ORDERED: TYLENOL PO PRN ×2 (14:22→14:25)
[2019-06-05] MEDS ORDERED: ZOFRAN IV PRN ×2 (14:22→14:25)
[2019-06-05] MEDS ORDERED: LASIX IV SCH (14:30)
[2019-06-05] MEDS: DUONEB (A & A) INH SCH ×3 (16:13→22:59)
[2019-06-05] MEDS: HUMULIN R (PARKWAY) SUBQ SCH ×2 (16:36→21:24)
[2019-06-05 16:40] LABS: HEMOGLOBIN A1C 6.7 % (4.8-6.0)
[2019-06-05] MEDS: SOLU-MEDROL IV SCH (16:40)
[2019-06-05 17:29] LABS: IRON SATURATION 7 %; TIBC 337 ug/dL; TOTAL IRON 24 ug/dL (53-167); UNBOUND IRON 313 ug/dL (112-346)
[2019-06-05] MEDS: PULMICORT INH SCH (19:48)
--- NOTE | 2019-06-05 19:54 | HISTORY AND PHYSICAL ---
PRIMARY CARE PROVIDER: Dr. James Titus. PRIMARY WRAPPING MACHINE TENDER: Dr. Elmore. CHIEF COMPLAINT: Shortness of breath. HISTORY OF PRESENT ILLNESS: Mr. Sergio Titus is a 68-year-old male with a medical history of COPD, on 3 L continuous oxygen, history of atrial fibrillation. Has been on chronic anticoagulation, but states that at least 3 weeks ago he was taken off his Coumadin. He also takes aspirin and Plavix. He has a history of diabetes mellitus type 2, hypertension, hyperlipidemia, and most recently iron-deficiency anemia, for which he was supposed to see Dr. Goode, deputy felony clerk, in the office today. He has been on iron pills and since then, he has had black stools, but he states he did a test run of taking himself off iron pills and his stool turned brown, but then turned black again once he resumed his iron. He states he has been having issues with balance, dizziness, and lightheadedness, but what mostly brought him in was the complaint of having shortness of breath that has been progressively worse over the last 4 months. He states around December or January, he had a permanent pacemaker placed along with cardiac stents. He has a total of 5 cardiac stents. The shortness of breath essentially has worsened over the last month to the point that any activity is extremely difficult. He states he takes Lasix 20 mg daily, but did not take it this morning because he was afraid it would be using the bathroom too frequently at Dr. Goode's office, but he does have poor appetite, chronic bilateral lower extremity swelling. He denies having any weight gain. He does have a productive cough that is clear to cream in color. He denies any fevers. Denies chest pain. Will admit to the medical floor. PAST MEDICAL HISTORY: 1. COPD, 3 L nasal cannula. 2. Chronic atrial fibrillation. 3. Diabetes mellitus type 2. 4. Hypertension. 5. Hyperlipidemia. 6. Iron deficiency anemia. 7. Bad vision with cataracts. 8. Coronary artery disease with Plavix and stents. 9. Depression. SURGICAL HISTORY: 1. Either in December or January 2019, he had permanent pacemaker. 2. Cardiac stents x5. 3. DCCV x2. 4. Left knee surgery. SOCIAL HISTORY: For 1 year, he has been a 1 pack per day smoker, but for 30 years prior to that, he was smoking 3 packs per day. Drinks anywhere from 2 to 3 beers per week. Denies any illicit drug use. His daughter lives with him. FAMILY HISTORY: Both mother and father had heart disease in the family along with diabetes. ALLERGIES: No known drug allergies. HOME MEDICATIONS: Have not been reconciled. He states that he does not take Coumadin anymore. He states he has been taken off that for at least 3 weeks, but he is currently on Plavix and aspirin, but again these medications need to be reconciled. REVIEW OF SYSTEMS: A 14 point review of systems is complete and all were negative except for those mentioned above in HPI. PHYSICAL EXAMINATION: VITAL SIGNS: Temperature 99.2 degrees, heart rate 80, respiratory rate 24, blood pressure 163/76, O2 saturation 93% on 3 L nasal cannula. GENERAL: Mr. Sergio Titus is a 68-year-old male. He is in no acute distress and is able to answer questions appropriately. HEENT: Atraumatic, normocephalic. Pupils equal, round, and reactive to light. Extraocular movements intact. Mucous membranes are moist. NECK: Trachea midline. CARDIOVASCULAR: S1, S2. Regular rate and rhythm. No rubs, gallops, or murmurs. He has 1 to 2+ lower extremity pitting edema, +2 dorsalis pedal pulses, +2 radial pulses. Difficult to assess for JVD due to body habitus. Negative for carotid bruits. PULMONARY: Mild expiratory crackles noted in the bases. No accessory muscle use. Mild work of breathing. He is tolerating 3 L nasal cannula. GI: Soft, nontender, nondistended. Positive bowel sounds x4. EXTREMITIES: Moves all extremities equally with decreased range of motion. NEURO: Alert and oriented x3. Follows commands. Sensory is intact. SKIN: Warm, dry, intact except for both heels that are red. No open wounds. LABORATORY DATA: White blood cells 7000, hemoglobin 10, hematocrit 34, platelet count 157,000. INR is 1.05. PTT is 29.7. ABGs on 3 L nasal cannula: PH 7.47 pCO2 59, pO2 is 86, bicarb 38, base excess 17, saturation 93%, carboxyhemoglobin 5.2. Lactate 1.8. Sodium 140, potassium 4.2, BUN 19, creatinine 0.9, glucose 220, calcium 9.0, bilirubin 0.90, AST 13, ALT 6, CK 62, troponin less than 0.01. ProBNP 2787 and albumin is 4.0. IMAGING: Chest x-ray: Right pleural effusion with basilar atelectasis and/or a small infiltrate on the right. Chest CT: Cardiomegaly, interstitial pulmonary edema, bilateral pleural effusions right greater than left, severe vascular disease, right-sided pacemaker dual chamber. EKG: Sinus rhythm with complete heart block and paced rhythm. Rate is 82. QTc inaccurate at 537. There is no ST elevation. He denies any chest pain. ASSESSMENT AND PLAN: 1. No echocardiogram here to review. Likely acute systolic congestive heart failure with history of atrial fibrillation. We will get an echocardiogram and start him on some Lasix. He has bilateral pleural effusions along with pulmonary edema. Will continue him on his aspirin and Plavix. 2. History of atrial fibrillation with history of cardioversions in the past. Apparently, he has been stopped off his Coumadin, he states around 3 weeks ago, but we will continue him on his aspirin at least. 3. Coronary artery disease with cardiac stents. Continue Plavix and aspirin. Once it is verified, will also need to continue the statin. 4. Questionable right lower lobe pneumonia. It was likely just fluid, but he was given, in the emergency room, Rocephin. Will continue that. 5. Chronic obstructive pulmonary disease exacerbation, but not acidotic with carbon dioxide retention. Will do nebulizers, steroids. Likely exacerbated due to the congestive heart failure. He received Rocephin and azithromycin, but will continue with Rocephin. 6. Diabetes mellitus type 2. Will do patterned blood glucoses and sliding scale insulin. Will also recheck a hemoglobin A1c. 7. Hyperlipidemia. Continue statin. 8. Iron deficiency anemia. He was actually going to see Dr. Goode today in the office to get scheduled for a colonoscopy, and he will have to reschedule that for outpatient. Currently, his hemoglobin hematocrit are stable. 9. Hypertension. Waiting for home medications to be verified and reconciled, and will resume whatever he is on. 10. Tobacco abuse. Cessation discussed. No nicotine patch at this time. Dictated by PRISCA Phillips for Sergio Mejia MD cc: PRISCA Phillips MD
[2019-06-05] MEDS: LIPITOR PO SCH (21:25)
[2019-06-05] MEDS: LASIX IV SCH (21:25)
--- NOTE | 2019-06-05 22:30 | HISTORY AND PHYSICAL ---
ADDENDUM: Patient seen and examined by myself. Full note dictated and discussed with nurse practitioner. Patient presented to the hospital with increased shortness of breath and swelling in his lower extremities. He denies any known history of congestive heart failure but does note that shortness of breath has been going on for approximately a month. He has a history of atrial fibrillation and hypertension. Currently, he is awake, alert. He is in mild respiratory distress. Lungs have wheezing, no appreciable crackles. I am going to check an echocardiogram, place him on Lasix, admit him to the hospital. Discussed with him the importance of stopping smoking, and we will follow. Please see full note. cc: Sergio Mejia MD
[2019-06-05 23:11] LABS: FERRITIN 87 ng/mL (30-400)
[2019-06-06] MEDS ORDERED: HUMULIN R (PARKWAY) SUBQ ONE (01:15)
[2019-06-06] MEDS: SOLU-MEDROL IV SCH ×3 (02:18→18:35)
[2019-06-06] MEDS: DUONEB (A & A) INH SCH ×6 (03:35→22:52)
[2019-06-06] MEDS: HUMULIN R (PARKWAY) SUBQ SCH ×6 (04:53→21:51)
[2019-06-06 06:07] LABS: HEMATOCRIT 31.5 % (42.0-52.0); HEMOGLOBIN 9.3 g/dL (14.0-18.0); MCHC 29.5 g/dL (33-37); MCV 94.9 FL (81-99); MPV 11.8 FL (7.4-10.4); RBC 3.32 XMIL (4.7-6.1); RDW 17.3 % (11.5-14.5); WBC 3.94 X1000 (4.8-10.8)
[2019-06-06 06:23] LABS: AGAP 10; ALKALINE PHOSPHATASE 99 U/L (32-122); BUN 26 mg/dL (8-22); CALCIUM 9.1 mg/dL (8.8-10.2); CHLORIDE 95 mmol/L (98-107); COSMO 292; ESTIMATED GFR > 60; GLUCOSE 231 mg/dL (70-104); GOT 12 U/L (10-34); GPT 6 U/L (10-44); POTASSIUM 4.6 mmol/L (3.5-5.1); SODIUM 140 mmol/L (136-145); TCO2 35 mmol/L (25-35); TOTAL PROTEIN 6.9 g/dL (6.3-8.3)
[2019-06-06] MEDS: PRILOSEC PO SCH (06:39)
[2019-06-06] MEDS ORDERED: PROTONIX PO SCH (07:00)
--- NOTE | 2019-06-06 07:40 | Diag Imaging Result Doc PS360 ---
EXAM: CHEST-2 VIEWS HISTORY: short of breath TECHNIQUE: Chest two views COMPARISON: 06/05/2019 FINDINGS: No change in the moderate sized right pleural effusion and small left pleural effusion. No change in the atelectasis and infiltrates in the lower right lung. Heart is mildly prominent. There is a right-sided pacemaker. Mild pulmonary edema. IMPRESSION: Stable chest. Electronically signed by Rene Balbuena 06/06/2019 7:37 AM
[2019-06-06] MEDS: PULMICORT INH SCH (07:56)
[2019-06-06] MEDS ORDERED: KLOR-CON PO SCH (09:00)
[2019-06-06] MEDS: TOPROL XL PO SCH (10:05)
[2019-06-06] MEDS: LASIX IV SCH ×2 (10:05→21:51)
[2019-06-06] MEDS: ASPIRIN PO SCH (10:06)
[2019-06-06] MEDS: PLAVIX PO SCH (10:06)
[2019-06-06] MEDS: HEMOCYTE PLUS CAPSULE PO SCH (10:06)
[2019-06-06] MEDS: CYMBALTA PO SCH (10:06)
[2019-06-06] MEDS: ROCEPHIN 1 GM in NS 50 ML IV SCH (10:06)
[2019-06-06 12:21] LABS: URINE SOURCE CLEAN CATCH
[2019-06-06 12:40] LABS: URINE BACTERIA 3+ /HFP; URINE CAST NONE SEEN /LPF; URINE CRYSTAL NONE SEEN /HPF; URINE EPITHELIAL CELLS <10 /HPF (<10); URINE RBC 20-40 /HPF (<10); URINE YEAST NONE SEEN /HPF
[2019-06-06 12:42] LABS: BILIRUBIN URINE NEGATIVE (NEGATIVE); BLOOD URINE NEGATIVE (NEGATIVE); CLARITY SLIGHTLY CLOUDY (CLEAR); COLOR YELLOW; KETONE URINE NEGATIVE (NEGATIVE)
[2019-06-06 12:43] LABS: LEUKOCYTES URINE TRACE (NEGATIVE); NITRITE URINE NEGATIVE (NEGATIVE); PROTEIN URINE 1+(30 mg/dL) mg/dL (NEGATIVE); UROBILINOGEN URINE NORMAL
--- NOTE | 2019-06-06 12:44 | PROGRESS NOTE ---
DATE: 06/06/2019 SUBJECTIVE: Patient reports still short of breath, but better in comparing with yesterday. OBJECTIVE: Vital Signs: Temperature 98.2 degrees, heart rate 78, respiratory rate 20, blood pressure 140/70, and O2 saturation 99% on 2 L nasal cannula. General: This is a chronically ill- appearing, 68-year-old male lying in bed in no acute distress. Cardiovascular: S1, S2 heard. No murmurs, gallops, or rubs. Regular rate and rhythm. Respiratory: Coarse breath sounds and wheezing noted in both pulmonary bases as well as crackles. The patient is not using any accessory muscles or having work of breathing. Abdomen: Soft. Nontender to palpation. Bowel sounds present. No organomegaly. Extremities: No clubbing or cyanosis. Edema 2+ in both lower extremities. Peripheral pulses present in both legs. Neurological: Patient alert and oriented x3. Moves 4 extremities. LABORATORY DATA: White cell count 3.94, hemoglobin 9.3, hematocrit 31.5 and platelets 151,000 with BMP every remarkable for glucose 231. ASSESSMENT AND PLAN: 1. Likely acute systolic congestive heart failure. Echocardiogram is still pending. CT of the chest revealed cardiomegaly interstitial pulmonary edema with bilateral pleural effusion right greater than the left and severe vascular disease. At this point, we will continue with Lasix. Considering that this patient is not feeling better, we will consult Cardiology and will go from there. 2. History of atrial fibrillation with history of cardioversions in the past. The patient is now stable. We will continue with the current management. 3. Coronary artery disease with cardiac stents. The patient is on Plavix and aspirin. We will continue with the same management. 4. Questionable right lower lobe pneumonia. The patient has been started on ceftriaxone. At this point, we will continue with same management. 5. Chronic obstructive pulmonary disease exacerbation. We will continue DuoNeb every 4 hours as scheduled. 6. Diabetes mellitus type 2. We will continue with sliding scale insulin. Accu-Chek before meals and also at bedtime. 7. Iron deficiency anemia. Stable. We will continue to monitor. 8. Disposition. Continue to monitor this patient closely. cc: Mukesh Amaya MD
[2019-06-06 15:24] LABS: BE 12.2 mmoll (-3.0-3.0); BLOOD TYPE ARTERIAL; HCO3-(ACT) 34.4 mmoll (20.0-26.0); METHB 1.3 % (0.0-1.5); O2(CT) 12.7 mL/dL (15.0-23.0); O2HB 92.6 % (95.0-99.0); PO2(98.6) 67 mmHg (60-100); SAMPLE BLOOD; SAO2 96.6 % (95.0-100.0); THB 9.7 g/dL (11.5-17.4); pH(98.6) 7.44 (7.35-7.45)
[2019-06-06 15:35] LABS: MODALITY CANNULA
[2019-06-06 15:36] LABS: ALLEN TEST YES
[2019-06-06 15:37] LABS: PCO2(98.6) 56 mmHg (35-45)
[2019-06-06] MEDS: LIPITOR PO SCH (21:51)
[2019-06-07] MEDS: SOLU-MEDROL IV SCH ×3 (02:05→18:22)
[2019-06-07] MEDS: DUONEB (A & A) INH SCH ×5 (03:02→22:52)
[2019-06-07 05:09] LABS: OCCULT BLOOD 1 NEGATIVE (NEGATIVE)
[2019-06-07 05:12] LABS: BE 13.1 mmoll (-3.0-3.0); BLOOD TYPE ARTERIAL; HCO3-(ACT) 35.1 mmoll (20.0-26.0); O2(CT) 12.8 mL/dL (15.0-23.0); O2HB 92.3 % (95.0-99.0); PO2(98.6) 64 mmHg (60-100); SAMPLE BLOOD; SAO2 95.7 % (95.0-100.0); THB 9.8 g/dL (11.5-17.4); pH(98.6) 7.42 (7.35-7.45)
[2019-06-07 05:15] LABS: ALLEN TEST NO; MODALITY CANNULA; PCO2(98.6) 61 mmHg (35-45)
[2019-06-07] MEDS: PRILOSEC PO SCH (06:13)
[2019-06-07] MEDS: HUMULIN R (PARKWAY) SUBQ SCH ×3 (06:36→16:25)
[2019-06-07 07:01] LABS: AGAP 11; BUN 34 mg/dL (8-22); CALCIUM 8.6 mg/dL (8.8-10.2); CHLORIDE 94 mmol/L (98-107); COSMO 291; ESTIMATED GFR > 60; GLUCOSE 203 mg/dL (70-104); POTASSIUM 4.9 mmol/L (3.5-5.1); SODIUM 139 mmol/L (136-145); TCO2 34 mmol/L (25-35)
[2019-06-07 07:14] LABS: HEMATOCRIT 31.4 % (42.0-52.0); HEMOGLOBIN 9.5 g/dL (14.0-18.0); MCH 28.7 PG (27-31); MCHC 30.3 g/dL (33-37); MCV 94.9 FL (81-99); MPV 11.4 FL (7.4-10.4); RBC 3.31 XMIL (4.7-6.1); RDW 17.3 % (11.5-14.5); WBC 8.02 X1000 (4.8-10.8)
--- NOTE | 2019-06-07 07:23 | CARDIOLOGY CONSULTATION ---
DATE: 06/07/2019 CONSULTATION REQUESTED BY: Hospitalist service at [facility]. REASON: Increasing dyspnea. HISTORY: Mr. Titus is an unfortunate 68-year-old male who has a very complex medical history, who presented to the emergency room on the morning of Wednesday, June 05 with worsening dyspnea. The patient said that he had been experiencing progressive dyspnea for the preceding 4 or 5 weeks. In fact, he had been seen by the community recreation coordinator in [place] on 05/01/2019 and at that visit, he had already gained about 10 pounds and he was feeling increasingly dyspneic. At this time, he says that he has gained anywhere from 15 to 20 pounds. He is very short of breath. Legs are swollen and he just could not tolerate staying at home any longer. Upon presentation, they did a chest x-ray that shows right pleural effusion with basilar atelectasis and infiltrate. They did a chest CT that shows cardiomegaly, interstitial pulmonary edema, bilateral pleural effusions, right greater than left, and severe vascular disease. The patient has been placed on diuretics. His initial blood work showed arterial blood gases, pCO2 59, PO2 was 86, pH 7.47. Carboxyhemoglobin was 5.2. Sodium is 140, potassium 4.2, BUN 19, creatinine 0.7. His proBNP was 2787. They have put him on Lasix. Subsequent blood gases June 07, pCO2 is 61, pH 7.42, PO2 is 64. Yesterday his BUN went up to 26, creatinine 1.0. His potassium yesterday was 4.6. The patient's EKG on presentation shows underlying atrial fibrillation with ventricular paced rhythm. PVCs noted. I do not believe the patient is in sinus rhythm. I really do not see any convincing indication of it. PAST HISTORY: Really very complex. He has history of paroxysmal atrial flutter. He recently underwent implantation of a pacemaker on 01/18/2019. That was an [employer] pacemaker 2272 Assurity MRI compatible [id number]. The patient subsequently has undergone implantation of a Watchman left atrial appendage closure device on 03/16/2019 under the services of the [place] team. He is currently taking Plavix and aspirin. He was on warfarin before. He had developed GI bleeding and he was about to meet with staff reporter Dr. Goode to have an evaluation for GI bleeding. The patient has a longstanding history of hypertension. The patient has been diagnosed with severe coronary heart disease. He presented with chest pain back in December 2018 and at that time, he was taken to the research laboratory manager by Dr. Rodríguez and he found that this patient had a severe stenosis of the circumflex, 95% in-stent restenosis that was treated with a stent. The patient had a dominant right coronary artery with a 50% high bifurcation PDA. The LAD had a significant stenosis. They did perform PCI to the LAD. It looks like he does not have a left main. The LAD and the circumflex come off separate ostia. The previous stent was done years ago. The patient follows normally with Dr. Fabrice Elmore with [facility] team. He was turned over to the care of the [place] team for the management of his heart rhythm and persistent atrial fibrillation. He has acid reflux. He has sleep apnea syndrome. He has advanced COPD. SURGICAL HISTORY: He has had arthroscopic knee surgery. He has had pacemaker implantation. SOCIAL HISTORY: His about 6 years ago. He lives with his only daughter. He has 2 grandchildren. 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 He does not drink much alcohol. He has been a smoker. FAMILY HISTORY: Strongly positive in several first-degree relatives. HOME MEDICATIONS: At the time of this admission included 1. Acetaminophen 650 every 6 hours as needed. 2. Aspirin 81 daily. 3. Lipitor 40 mg at bedtime. 4. Plavix 75 daily. 5. Cymbalta 30 mg daily. 6. Ferrous sulfate 1 tablet daily. 7. Furosemide 40 daily. 8. Glimepiride 4 mg twice a day. 9. Metformin a 1000 twice a day. 10. Metoprolol-XL 1 tablet daily. 11. Omeprazole 40 mg daily. 12. Potassium chloride. ALLERGIES: He has no allergies. REVIEW OF SYSTEMS: He has been basically short of breath all the time using oxygen. He has been seen by Pulmonary in the past. His primary doctor is Dr. James Titus who is in [place]. No other positives. PHYSICAL EXAMINATION: Blood pressure 148/90, temperature 98.2 degrees, pulse 80, respirations 16. General: He is awake alert chronically ill with oxygen nasal cannula. He is in no distress. HEENT: Unremarkable. Chest: Shows markedly diminished breath sounds diffusely with dullness to percussion in the bases. There is slight end-expiratory wheezes. Heart: Sounds are relatively regular with a soft systolic murmur. Abdomen: Obese, nontender. I cannot detect any hepatomegaly. Extremities: Showed 2 to 3+ edema. Neurological: Follows commands. Moves 4 extremities. IMPRESSION: 1. Patient presenting with decompensated congestive heart failure. Historically, this will be diastolic heart failure given the fact that most recent cardiac imaging study showed preserved ejection fraction. 2. The patient has paroxysmal/permanent atrial arrhythmia. 3. Status post dual-chamber pacemaker. 4. Status post Watchman left atrial appendage occluder procedure. 5. History of severe coronary heart disease, previous stent to the circumflex coronary artery with restenosis, recent intervention December 2018 to both LAD and Circumflex. 6. Advanced COPD. 7. Bilateral pleural effusions. 8. Hypercarbic respiratory failure. 9. Sleep apnea syndrome. RECOMMENDATION: At this time, I would suggest aggressive diuretic therapy for the time being until we are able to improve the severity of his pleural effusions. If that plan does not work, we may have to pursue thoracentesis. Given the complex medical issues that this patient has including respiratory failure, the unknown GI bleeding source, the advanced heart failure, I believe this patient should be moved to an institution where they can handle all his multiple complex issues. Please call me if you have any questions or concerns about this evaluation. cc: Porter Walker MD MTDD
[2019-06-07] MEDS ORDERED: ZAROXOLYN PO SCH (08:30)
[2019-06-07] MEDS ORDERED: ALDACTONE PO SCH (09:00)
[2019-06-07] MEDS ORDERED: LASIX IV SCH (09:00)
[2019-06-07] MEDS: PLAVIX PO SCH (09:58)
[2019-06-07] MEDS: CYMBALTA PO SCH (09:58)
[2019-06-07] MEDS: ASPIRIN PO SCH (09:58)
[2019-06-07] MEDS: TOPROL XL PO SCH (09:59)
[2019-06-07] MEDS: ROCEPHIN 1 GM in NS 50 ML IV SCH (09:59)
[2019-06-07] MEDS: HEMOCYTE PLUS CAPSULE PO SCH (09:59)
--- NOTE | 2019-06-07 11:10 | PROGRESS NOTE ---
DATE: 06/07/2019 SUBJECTIVE: The patient continues to complain of shortness of breath, better in comparing with yesterday though. Denies any fever or chills. OBJECTIVE: Vital Signs: Temperature 98.7 degrees, heart rate 80, respiratory rate 20, blood pressure 136/55, O2 saturation 97% on 3 L nasal cannula. General: This is a chronically ill- appearing, 68-year-old, male, lying in bed in no acute distress. Cardiovascular: S1, S2 heard. No murmurs, gallops, or rubs. Regular rate and rhythm. Respiratory: Mild expiratory wheezing noted in both pulmonary bases. The patient is not using any accessory muscles or having work of breathing. Abdomen: Soft, obese, nontender to palpation. Bowel sounds present. No organomegaly. Extremities: There is 2+ pitting edema in both lower extremities. Peripheral pulse is present in both legs. Neurological: The patient is alert and oriented x3. Moves all 4 extremities. LABORATORY DATA: Reviewed. ASSESSMENT AND PLAN: 1. Acute diastolic congestive heart failure. The patient continues to be on Lasix 40 mg intravenously every 12 hours. Evaluated by Cardiology. They recommend to continue with the same management. The patient has also paroxysmal atrial arrhythmia as well. Also, the patient is status post dual chamber pacemaker. At this point, as per Cardiology recommendation, will transfer this patient to [facility] for evaluation by Pulmonary and probably Gastroenterology as well. 2. Coronary artery disease with cardiac stents. The patient is on Plavix and aspirin. Will continue with the same management. 3. Questionable right lower lobe pneumonia. The patient is on ceftriaxone. Will continue with the same management. 4. Chronic obstructive pulmonary disease exacerbation. Will continue with DuoNeb every 4 hours as scheduled and intravenous steroids as well. 5. Diabetes mellitus type 2. Will continue with sliding scale insulin and Accu-Chek before meals and also at bedtime. 6. Iron-deficiency anemia. The patient was supposed to be seen by Gastroenterology the day of admission. At this point, will continue to monitor CBC, and also see if this patient will need to be seen by Gastroenterology as an inpatient. 7. Disposition. Will transfer this patient to [facility]. cc: Mukesh Amaya MD
--- NOTE | 2019-06-07 14:40 | ECHO REPORT ---
ORDER DATE: 06/05/2019 INDICATION: Shortness of breath. FINDINGS: 1. The right atrium is moderately enlarged at 5.2 cm. 2. Mild tricuspid regurgitation. RV systolic pressure of 50. 3. Normal RV size and systolic function. 4. Mild pulmonic insufficiency. 5. Moderate left atrial enlargement with a dimension of 5.4 cm. 6. No mitral valve prolapse. Moderate mitral regurgitation. 7. Normal left ventricular size with an end-diastolic dimension of 4 cm. Probable mild left ventricular hypertrophy, but the endocardial border resolution on this study is extremely difficult. Limited evaluation of the ejection fraction. The estimated ejection fraction is approximately 55% and appears normal. This is off of limited views and really only views from the parasternal short axis. Otherwise images of the left ventricular cavity are very poor quality. I would consider alternative modalities to assess this patient if clinically indicated. 8. The aortic valve is calcified with some restriction in motion. There is poor Doppler evaluation of the aortic valve. I cannot accurately assess the degree of stenosis on this patient. There does not appear to be any clear evidence of insufficiency. 9. The aorta appears normal in visualized segments. 10. No pericardial effusion identified. cc: MD Lilli Douglass CRNP
[2019-06-07] MEDS ORDERED: ZOFRAN IV PRN (16:43)
[2019-06-07] MEDS: LASIX IV SCH (18:23)
[2019-06-07] MEDS: HUMULIN N SUBQ SCH (20:22)
[2019-06-07] MEDS: ALDACTONE PO SCH (20:24)
[2019-06-07] MEDS: LIPITOR PO SCH (20:27)
[2019-06-08] MEDS: SOLU-MEDROL IV SCH ×3 (02:05→18:11)
[2019-06-08] MEDS: DUONEB (A & A) INH SCH ×6 (03:37→22:50)
[2019-06-08] MEDS: LASIX IV SCH ×2 (06:04→18:12)
[2019-06-08] MEDS: PRILOSEC PO SCH (06:05)
[2019-06-08] MEDS: HUMULIN N SUBQ SCH (06:05)
[2019-06-08 06:47] LABS: HEMATOCRIT 30.2 % (42.0-52.0); HEMOGLOBIN 9.2 g/dL (14.0-18.0); MCHC 30.5 g/dL (33-37); MCV 92.1 FL (81-99); MPV 11.9 FL (7.4-10.4); RBC 3.28 XMIL (4.7-6.1); RDW 16.8 % (11.5-14.5); WBC 6.51 X1000 (4.8-10.8)
[2019-06-08 07:20] LABS: CREATININE 1.2 mg/dL (0.7-1.2); POTASSIUM 4.7 mmol/L (3.5-5.1)
--- NOTE | 2019-06-08 08:13 | CARDIOLOGY PROGRESS NOTE ---
DATE: 06/08/2019 CHIEF COMPLAINT: Shortness of breath. SUBJECTIVE: Mr. Titus is still feeling weak and dyspneic. He denies having any major pain. OBJECTIVE: VITAL SIGNS: Blood pressure 148/68, temperature 91 degrees, pulse 79, respirations 20. GENERAL: He is awake, alert, in no distress. HEENT: Unremarkable. CHEST: Markedly diminished breath sounds especially of the right lung with dullness to percussion. HEART: Sounds are relatively regular with some extrasystoles. I do hear a third heart sound. ABDOMEN: Obese. EXTREMITIES: Show 1-2+ edema. NEUROLOGICAL: Follows commands. Moves 4 extremities. BLOOD WORK: Today, sodium 136, potassium 4.7, BUN 44, creatinine 1.2, chloride 92, carbon dioxide 33. IMPRESSION: 1. Patient who presents with decompensated heart failure. This appears to be diastolic. 2. Large right pleural effusion. 3. Atrial arrhythmia, flutter versus fibrillation. 4. Status post dual chamber pacemaker. 5. Advanced COPD. 6. Hypercarbic respiratory failure. 7. Status post Watchman left atrial appendage occluding device. 8. Severe coronary heart disease, recent stent to circumflex coronary artery and also stent to LAD. RECOMMENDATIONS: At this time, we will continue with diuresis. I will discuss with primary team as to whether or not it may be a good idea to do a thoracentesis because of his large effusion. He may not be able to achieve enough diuresis to really decrease that right pleural effusion to any significant degree. We will see what else can be done to improve his situation. We have put him on a combination of Lasix, metolazone, spironolactone, and we will how things go. cc: Porter Walker MD [facility]
[2019-06-08] MEDS ORDERED: ASPIRIN PO SCH (09:00)
[2019-06-08] MEDS ORDERED: PLAVIX PO SCH (09:00)
--- NOTE | 2019-06-08 09:37 | Diag Imaging Result Doc PS360 ---
CHEST-2 VIEWS - 06/08/2019 INDICATION: hypoxia COMPARISON: 06/06/2019 FINDINGS: There has been accumulation of a very small left pleural effusion. There is a grossly stable small to moderate right basilar pleural effusion with some adjacent atelectasis. Stable pulmonary vascular congestion. Heart size remains stable. Stable right-sided pacemaker. IMPRESSION: Small left pleural effusion. Other findings are stable from prior. Electronically signed by Alfredo Higgins 06/08/2019 9:34 AM
[2019-06-08] MEDS: ZAROXOLYN PO SCH (09:46)
[2019-06-08] MEDS: HEMOCYTE PLUS CAPSULE PO SCH (09:47)
[2019-06-08] MEDS: TOPROL XL PO SCH (09:47)
[2019-06-08] MEDS: CYMBALTA PO SCH (09:47)
[2019-06-08] MEDS: ALDACTONE PO SCH ×2 (09:48→21:31)
[2019-06-08] MEDS: ROCEPHIN 1 GM in NS 50 ML IV SCH (09:48)
[2019-06-08] MEDS: HUMULIN R SUBQ SCH ×3 (12:28→22:38)
--- NOTE | 2019-06-08 16:03 | GASTROENTEROLOGY CONSULTATION ---
DATE: 06/08/2019 ATTENDING PHYSICIAN: Dr. Hemphill. PRIMARY CARE DOCTORS: Mita Cid at [facility]. REASON FOR CONSULTATION: Anemia. HISTORY OF PRESENT ILLNESS: Mr. Titus is a 68-year-old male who was admitted on 06/05/2019 for shortness of breath. He has a history of COPD. He is on 3 L continuous home oxygen. He has history of atrial fibrillation. He has been on anticoagulation with aspirin and Plavix. He has history of coronary disease status post stenting, last stents were placed 3 months ago. He was noted to be anemic during the hospitalization and Gastroenterology was consulted. The patient has had some workup done at [facility] for anemia. According to him he swallowed a capsule once and he has had a colonoscopy done many years ago. He does not recall having any EGD done although he had some esophageal studies done to look at his heart. We will try to obtain records from [facility]. The patient denies any history of overt vomiting blood or passing or bright blood in the stools. He has bruises over his skin which he attributes to chronic blood thinners in the form of aspirin Plavix. PAST MEDICAL HISTORY: 1. Chronic obstructive pulmonary disease on 3 L nasal cannula. 2. Chronic atrial fibrillation. 3. Type 2 diabetes. 4. Hypertension. 5. Hyperlipidemia. Iron deficiency anemia. 6. Bad vision, cataracts. 7. Coronary disease and coronary stents. 8. Depression. PAST SURGERY HISTORY: 1. Permanent pacemaker in January 2019. 2. Cardiac stents x5. 3. Left knee surgery. SOCIAL HISTORY: He has been smoking 1 pack a day. Prior to that, he has been a heavy smoker. Even he smoked 3 packs per day. He drinks 2 to 3 beers per week. Denies any illicit drug abuse. He is daughter lives with him. FAMILY HISTORY: Both mother and father heart disease in the family along with diabetes. ALLERGIES: No known drug allergies. REVIEW OF SYSTEMS: Denies any current fevers, rigors, or chills or chest pain. He does have some baseline shortness of breath and COPD. He denies any vomiting or passing blood in the stools. He does have a history of arthritis. Does complain of skin bruising. He does have some history of lower extremity edema. He does have history of arthritis. Denies any neurologic complaints. MEDICATIONS IN THE HOSPITAL: 1. Lipitor. 2. Tylenol. 3. DuoNeb inhaler. 4. Ceftriaxone. 5. Duloxetine. 6. Lasix. 7. Humulin N. 8. Solu-Medrol. 9. Metolazone. 10. Metoprolol. 11. Multivitamin. 12. Prilosec. 13. Zofran. 14. Spironolactone 20 mg p.o. mg p.o. b.i.d. 15. The patient is on a heart healthy diet. PHYSICAL EXAMINATION: Temperature of 98.1 degrees, pulse rate of 70, respiratory rate 20, blood pressure 140/68, saturating 98% on 3 nasal cannula. His body weight of 262 pounds 4 ounces. BMI of 36.6.General: Obese, sitting in bed, in no acute in no acute distress. HEENT: Positive pallor. No icterus. Nasal cannula in place. Neck: Supple. Abdomen: Obese. Mild distention noted. No rebound or guarding. Extremities: No cyanosis, clubbing. Diffuse bruising noted over the upper extremities. He had the lower extremity edema noted. Neuro: Card he is alert, awake, oriented x3. LABS: His hemoglobin and hematocrit is 9.2 and 30.2, white count 6.51, platelet count of 157,000. Sodium 132, potassium 4.7, chloride 92, bicarb 33, anion gap 11, BUN of 44, creatinine 1.2, glucose of 333, calcium is 9. Urinalysis showing positive white cells and 1+ protein, slightly cloudy, and trace glucose. ABG showing pH 7 pH of 7.42 pCO2 of 61, PO2 64. This is on 3 L nasal cannula. Chest x-ray done yesterday showed small left pleural effusion and grossly stable small to moderate right basilar pleural effusion with some adjacent atelectasis. Stable pulmonary vascular congestion. Heart size remains stable right-sided pacemaker noted. Urine culture showed no growth. Stool for occult blood is positive. His sputum culture is pending. IMPRESSION AND PLAN: 1. Decompensated heart failure. Appears to be diastolic 2. Pleural effusion on the right side. 3. Atrial fibrillation versus flutter. 4. Status post dual chamber pacemaker. 5. Advanced COPD on home oxygen of 3 L per nasal cannula. 6. Hypercarbic respiratory failure. 7. Status post Watchman left atrial appendage occluding device. 8. Severe coronary disease with recent stent to the circumflex coronary artery. Also stent to the LAD. 9. Positive Hemoccult. 10. Anemia. 11. Type 2 diabetes. RECOMMENDATIONS: We will continue the patient on PPIs. We will start him on Iron C b.i.d. and multivitamin once daily. We will watch the signs for overt GI bleeding. At this point since the patient is on aspirin and Plavix will need to hold them for 7 days before proceeding with any kind of endoscopic intervention including EGD and colonoscopy. We will also ask nursing staff to obtain records from [facility] about any kind of recent GI workup. We will continue to watch her blood counts and transfuse as needed. The patient will need to keep a good control of his diabetes. We will put him on bowel regimen with MiraLAX once daily. If the patient shows signs of overt GI bleeding. We may have to do endoscopic intervention during the inpatient stay. Otherwise the like to do it as an outpatient once the patient can be off aspirin Plavix for 7 days before the procedure. The above discussed with the patient and the nursing staff all questions answered. Please call us with any further questions. cc: MD James Virk MD Luis N. Villanueva, MD
--- NOTE | 2019-06-08 19:22 | PROGRESS NOTE ---
DATE: 06/08/2019 SUBJECTIVE: Patient has no major complaints. OBJECTIVE: Cardiovascular: Regular rate and rhythm. Pulmonary: Bilateral breath sounds diminished at the bases. Still with some rales. No rhonchi. No wheezing. Gastrointestinal: Soft, nontender, nondistended. Bowel sounds are positive. LABORATORY DATA: White count 6, hemoglobin and hematocrit 9 and 30, platelets of 157,000. BUN and creatinine of 44 and 1.2, sugar 333. PROBLEM LIST: 1. Acute diastolic heart failure. We will continue diuretics. Dr. Walker is following. Appreciate his input and we will continue to monitor. He still has extreme pitting edema and just almost anasarca in his lower extremities, just a lot of swelling. 2. Coronary artery disease with percutaneous coronary intervention. We are going to hold his aspirin and Plavix because he may need fluid removal. 3. Questionable right lower lobe pneumonia. He is on Rocephin. We will continue to monitor. 4. Chronic obstructive pulmonary disease exacerbation. DuoNeb. We will decrease IV steroids. 5. Diabetes. Sliding scale, is stable. We will continue to monitor. 6. Iron deficiency anemia. Gastroenterology has been consulted and they would like to pursue endoscopy, but again will have to be off aspirin and Plavix for several days before we can go there. They want to hold it for 7 days, so we will continue to monitor closely. DISPOSITION: Pending clinical status. We will continue to monitor closely. cc: Ben Hemphill MD
[2019-06-08] MEDS: LIPITOR PO SCH (21:30)
[2019-06-08] MEDS: ICAR-C PO SCH (21:31)
[2019-06-09] MEDS: DUONEB (A & A) INH SCH ×6 (03:04→22:45)
[2019-06-09] MEDS: LASIX IV SCH ×2 (05:22→16:13)
[2019-06-09] MEDS: SOLU-MEDROL IV SCH ×2 (05:22→18:05)
[2019-06-09] MEDS: PRILOSEC PO SCH (06:07)
[2019-06-09] MEDS: HUMULIN R SUBQ SCH ×4 (06:55→21:21)
--- NOTE | 2019-06-09 07:03 | Diag Imaging Result Doc PS360 ---
EXAM: CHEST-PORTABLE 06/09/2019 HISTORY: dyspnea TECHNIQUE: AP portable upright at 0500 COMMENT: There is a large right pleural effusion. This was also present on 06/08/2019. The pleural fluid collection on the left which was present previously has diminished. The right-sided effusion is slightly larger and there is more compressive atelectasis of the right middle and lower lobes. Some ill-defined opacity over the left base is present which may represent pulmonary edema. IMPRESSION: Improved left pleural effusion and worsened right pleural effusion. Electronically signed by Gerald Taylor 06/09/2019 7:01 AM
[2019-06-09 07:41] LABS: CALCIUM 9.4 mg/dL (8.8-10.2); CREATININE 1.3 mg/dL (0.7-1.2); POTASSIUM 4.8 mmol/L (3.5-5.1)
[2019-06-09 08:01] LABS: HEMATOCRIT 31.6 % (42.0-52.0); HEMOGLOBIN 9.6 g/dL (14.0-18.0); MCHC 30.4 g/dL (33-37); MCV 95.5 FL (81-99); MPV 12.4 FL (7.4-10.4); RBC 3.31 XMIL (4.7-6.1); RDW 16.8 % (11.5-14.5); WBC 7.38 X1000 (4.8-10.8)
[2019-06-09] MEDS: CYMBALTA PO SCH (08:42)
[2019-06-09] MEDS: TOPROL XL PO SCH (08:42)
[2019-06-09] MEDS: ZAROXOLYN PO SCH (08:42)
[2019-06-09] MEDS: HEMOCYTE PLUS CAPSULE PO SCH (08:42)
[2019-06-09] MEDS: ICAR-C PO SCH ×2 (08:42→21:21)
[2019-06-09] MEDS: MIRALAX PO SCH (08:42)
[2019-06-09] MEDS: ALDACTONE PO SCH ×2 (08:43→21:21)
[2019-06-09] MEDS: ROCEPHIN 1 GM in NS 50 ML IV SCH (09:10)
[2019-06-09 12:19] LABS: COLLAGEN/EPI PLT AGG > 281 Seconds (87-172)
[2019-06-09 12:20] LABS: COLLAGEN/ADP PLT AGG 126 Seconds (65-124)
--- NOTE | 2019-06-09 13:56 | CARDIOLOGY PROGRESS NOTE ---
DATE: 06/09/2019 CHIEF COMPLAINT: Shortness of breath, swelling. SUBJECTIVE: Mr. Titus feels like he is breathing better. He is coughing up some phlegm. His chest x-ray today shows improved left pleural effusion and worsened right pleural effusion. His diuretic regimen continues to be spironolactone 25 b.i.d., metolazone 2.5 daily, and furosemide 40 mg twice a day. His weight has been really erratic. The first weight recorded is 240, then 249, then the highest is 262, and today is 258. I do not believe these weights are accurate. We may have to have some sort of a standing scale weight. PHYSICAL EXAMINATION: Vital signs: Blood pressure is 156/76, temperature 98.2, pulse 75, respirations 20. General: He is awake, alert, oriented, in no distress. HEENT: Unremarkable. Chest: Markedly diminished breath sounds in the right lung with dullness to percussion. Heart: Sounds are regular and rhythmic. No gallop or murmur. Abdomen: Obese, nontender. Extremities: Showed 1+ edema. Neurologic exam: Follows commands, moves all 4 extremities. BLOOD WORK: Hemoglobin 9.6, hematocrit 31.6, white cell count 7380. Sodium 138, potassium 4.8, BUN 43, creatinine 1.3. IMPRESSION: 1. Patient who presents with decompensated congestive heart failure. It is mostly diastolic. 2. Extensive right pleural effusion. 3. Atrial flutter, atrial arrhythmia. 4. Status post dual-chamber pacemaker implantation. 5. Severe coronary heart disease. He has a stent to circumflex and left anterior descending. 6. Advanced chronic obstructive pulmonary disease. 7. Hypercarbic respiratory failure. 8. Status post WATCHMAN procedure or left atrial appendage closure device. RECOMMENDATIONS: At this time, will continue with present course of action. Aggressive diuresis. He may benefit from thoracentesis. They have put on hold aspirin and Plavix because they also want to do GI evaluation. We will see how he does over the course of the next few days. cc: MD JOAN Mercado
[2019-06-09] MEDS: DOXYCYCLINE 100 MG in NS 250 ML IV SCH (18:05)
--- NOTE | 2019-06-09 20:15 | PROGRESS NOTE ---
DATE: 06/09/2019 SUBJECTIVE: Patient is still having difficulty breathing. OBJECTIVE: Blood pressure is 144/57, heart rate of 80, respiratory rate 22, temperature 98.6 degrees, 100% on 2 L.Cardiovascular: Regular rate and rhythm. Pulmonary: Bilateral breath sounds. Clear to auscultation. Gastrointestinal: Soft, nontender, nondistended. Bowel sounds are positive. LABORATORY DATA: White count is 7, hemoglobin and hematocrit 9 and 31, platelets 156,000. Coagulation, platelet anti-function is abnormal. BUN and creatinine are 43 and 1.3, which is a slight bump from yesterday. Sugar 326. PROBLEM LIST: 1. Diastolic heart failure. He is on diuretics. Dr. Martinez is following. We will continue to manage. I agree completely that he needs a thoracentesis, but he has not been off his aspirin and Plavix long enough to attempt that right now, and apparently he had stents about 2 or 3 months ago is what is reported. He has a Watchman, so the chances of him forming atrial thrombus are limited. I cannot tell he actually had a PCI, but maybe he did in December, so it has been 6 months. So, it is a complicated situation. His effusion looks worse today despite diuretics, and I agree with Dr. Martinez that pushing them more may cause more renal function. We will get a Pulmonary opinion and see what they say, and we will try to do the thoracentesis as soon as possible, no later than Wednesday. We may have to do it sooner if the fluid continues to accumulate. 2. Possible right lower lobe pneumonia. Could just be effusion. He is on antibiotics, but we may need to expand the coverage a bit. 3. Acute on chronic renal insufficiency. We will continue treatment and follow. 4. Disposition. Pending clinical status. cc: Ben Hemphill MD
--- NOTE | 2019-06-09 21:00 | PROVIDER PROGRESS NOTE ---
Progress Note S: No acute overnight events. Patient reports improving dyspnea. Awaiting capsule endoscopy results from [facility]. He reports last colonoscopy was 10 years ago. He cannot recall when he had a previous EGD. No rectal bleeding or abdominal pain. Last Vital Signs Temp 97.5 F L 06/09/19 20:00 Pulse 81 06/09/19 20:00 Resp 19 06/09/19 19:39 BP 155/69 06/09/19 20:00 Pulse Ox 100 06/09/19 20:00 Height 5 ft 11 in Weight 258 lb 12.8 oz 4L NC GEN: awake, alert, NAD HEENT: anicteric, MMM NECK: supple CV: RRR, no murmurs PULM: decreased BS throughout, no wheezing ABD: soft NT/ND, NABS EXT: 3+ LE edema NEURO: nonfocal LABS: 06/09/19 06/09/19 06:15 06:15 WBC 7.38 Hgb 9.6 L Plt Count 156 Sodium 138 Potassium 4.8 Chloride 89 L Carbon Dioxide 39 H Anion Gap 10 BUN 43 H Creatinine 1.3 H Glucose 349 H A/P: Mr. Sergio Titus is a 68 year old man with CAD s/p stents, chronic normocytic anemia, afib/flutter, s/p dual-chamber ICD, DM2, left pleural effusion, and COPD on 3L home O2 who presented with CHF exacerbation. GI consulted for chronic anemia. His anemia has been stable since 03/2019. No overt bleeding. His aspirin and plavix have been held. Recommend continued diuresis and weaning O2. Once he is euvolemic, then we can consider diagnostic EGD and colonoscopy. He is high anesthesia risk given his cardiopulmonary status. # Anemia: - trend H/H, call if he develops visible GI bleeding or if he develops downtrending hgb - call back once patient is euvolemic and nearing discharge, we can consider diagnostic EGD/colonoscopy at that time # HEFpEF: continue duiresis as per cardiology # DM2: uncontrolled; glycemic control # Constipation: continue miralax Will follow peripherally. Please call with questions
[2019-06-09] MEDS: LIPITOR PO SCH (21:21)
[2019-06-10] MEDS: DUONEB (A & A) INH SCH ×6 (03:25→22:32)
[2019-06-10] MEDS: SOLU-MEDROL IV SCH (06:11)
[2019-06-10] MEDS: LASIX IV SCH ×2 (06:11→17:13)
[2019-06-10] MEDS: PRILOSEC PO SCH (06:11)
[2019-06-10] MEDS: DOXYCYCLINE 100 MG in NS 250 ML IV SCH ×2 (06:11→17:11)
[2019-06-10] MEDS: HUMULIN R SUBQ SCH ×5 (06:12→23:16)
[2019-06-10 06:35] LABS: HEMATOCRIT 32.2 % (42.0-52.0); HEMOGLOBIN 9.8 g/dL (14.0-18.0); LYMPH# 0.63 X1000 (1.2-3.4); LYMPH% 9.2 % (20.5-51.1); MCH 28.2 PG (27-31); MCHC 30.4 g/dL (33-37); MCV 92.5 FL (81-99); MONO# 0.49 X1000 (0.11-0.59); MONO% 7.2 % (1.7-9.3); MPV 11.5 FL (7.4-10.4); NEUT% 83.6 % (42.2-75.2); PLT 150 X1000 (130-400); RBC 3.48 XMIL (4.7-6.1); RDW 16.5 % (11.5-14.5); WBC 6.82 X1000 (4.8-10.8)
[2019-06-10 07:00] LABS: ESTIMATED GFR > 60
[2019-06-10 07:03] LABS: AGAP 10; BUN 33 mg/dL (8-22); CALCIUM 9.2 mg/dL (8.8-10.2); CHLORIDE 88 mmol/L (98-107); COSMO 297; CREATININE 1.1 mg/dL (0.7-1.2); GLUCOSE 323 mg/dL (70-104); POTASSIUM 4.4 mmol/L (3.5-5.1); SODIUM 139 mmol/L (136-145); TCO2 41 mmol/L (25-35)
--- NOTE | 2019-06-10 07:20 | Diag Imaging Result Doc PS360 ---
EXAM: CHEST-PORTABLE HISTORY: dyspnea TECHNIQUE: Portable chest single view COMPARISON: 06/09/2019 FINDINGS: There is a small to moderate-sized right-sided pleural effusion and tiny left pleural effusion. The right hemidiaphragm may be elevated as well. Heart is enlarged and there is mild pulmonary edema. There is atelectasis in the lung bases. There is a right-sided pacemaker. IMPRESSION: Stable chest. Electronically signed by Rene Balbuena 06/10/2019 7:18 AM
[2019-06-10] MEDS: ICAR-C PO SCH ×2 (08:14→21:07)
[2019-06-10] MEDS: ALDACTONE PO SCH ×2 (08:14→21:07)
[2019-06-10] MEDS: ZAROXOLYN PO SCH (08:14)
[2019-06-10] MEDS: TOPROL XL PO SCH (08:15)
[2019-06-10] MEDS: MIRALAX PO SCH (08:15)
[2019-06-10] MEDS: CYMBALTA PO SCH (08:15)
[2019-06-10] MEDS: HEMOCYTE PLUS CAPSULE PO SCH (08:15)
[2019-06-10] MEDS: ROCEPHIN 1 GM in NS 50 ML IV SCH (09:48)
[2019-06-10] MEDS: COZAAR PO SCH (14:43)
--- NOTE | 2019-06-10 15:03 | PROGRESS NOTE ---
DATE: 06/10/2019 SUBJECTIVE: The patient has no major complaints. His breathing is still not completely together. OBJECTIVE: Blood pressure 173/76, heart rate of 80, respiratory rate 21, temperature 97.6 degrees.Cardiovascular: Regular rate and rhythm. Pulmonary: Bilateral breath sounds clear to auscultation. GI: Soft, nontender, nondistended. Bowel sounds are positive. LABORATORY DATA: White count is 6, hemoglobin and hematocrit 9.8, 32, platelets 150,000. Chemistries show BUN and creatinine of 33 and 1.1 which is above where it has been. Sugars are still fluctuating 200s, 300s. PROBLEM LIST: 1. Diastolic heart failure exacerbation, continue regular medications and follow. We will continue diuresis and follow. 2. Right lower lobe pneumonia possibly versus effusion. We will continue empiric antibiotics. Pulmonary is following. At this point Dr. Salgado does not feel strongly we need to pursue thoracentesis so we will follow. I am going to continue to hold the aspirin and Plavix at least through Wednesday. Repeat his chest x-ray and decide if he needs any intervention. It will be about 4 days off of his anti-platelet at that time. 3. Acute on chronic renal failure. He seems to be stable, it is actually improved today so we will continue diuretics. DISPOSITION: Pending clinical status. He seems a little bit more somnolent. I am going to check an ABG, make sure his hypercapnia is not progressing rapidly. cc: Ben Hemphill MD
[2019-06-10 16:48] LABS: BLOOD TYPE ARTERIAL; SAMPLE BLOOD
[2019-06-10 16:49] LABS: ALLEN TEST YES; BE 20.9 mmoll (-3.0-3.0); HCO3-(ACT) 41.2 mmoll (20.0-26.0); METHB 0.6 % (0.0-1.5); O2HB 93.9 % (95.0-99.0); PO2(98.6) 69 mmHg (60-100); SAO2 96.9 % (95.0-100.0); THB 9.8 g/dL (11.5-17.4); pH(98.6) 7.44 (7.35-7.45)
[2019-06-10 16:50] LABS: MODALITY CANNULA; PCO2(98.6) 71 mmHg (35-45)
--- NOTE | 2019-06-10 17:44 | CARDIOLOGY PROGRESS NOTE ---
DATE: 06/10/2019 SUBJECTIVE: Mr. Titus reports his breathing has improved somewhat. He has no pain complaints. PHYSICAL: He is afebrile. Heart rate 80, his blood pressure is 173/76. Most of the systolics continue to be quite elevated. His I's and O's for the course of the hospitalization have been negative 4.5 L.General: He is in no acute distress. Cardiovascular: He sounds to be in a regular rate and rhythm. He has no obvious murmurs. He has no S3. He has 1+ bilateral lower extremity edema. His chest exam sounds relatively clear with the exception of some mildly reduced sounds in the right base. He has no increased work of breathing. His abdomen is soft, nontender. He has no obvious organomegaly. PERTINENT DATA: His chest x-ray was reviewed and shows a small to moderate right side pleural effusion. His lab data shows a sodium of 139, potassium 4.4, his BUN is 33 with a creatinine of 1.1. ASSESSMENT: Mr. Titus is a 68-year-old gentleman with heart failure. PLAN: We will continue on diuresis. He continues to be quite hypertensive. He is on spironolactone, metoprolol, metolazone on a daily basis as well as IV Lasix. He seems to be diuresing reasonably well. Given his continued significant hypertension that is present and his preserved ejection fraction on echocardiogram, we will begin to add in an ARB. I will add in losartan 25 mg daily. cc: Fabrice Elmore MD
[2019-06-10] MEDS: LIPITOR PO SCH (21:07)
--- NOTE | 2019-06-10 21:20 | CONSULTATION ---
DATE OF CONSULTATION: 06/10/2019 CONTINUATION: LABORATORY DATA: The PO2 is 69, pCO2 is 71, HC03 is 41.2. Sodium 139, potassium 4.4, chloride 88, carbon dioxide 41, BUN 33, creatinine 1.1, glucose 323, calcium 9.2. DIAGNOSTIC DATA: CT scan, mentioned in the HPI. Chest x-ray on June 08, revealed small left pleural effusion, stable findings from prior study. ASSESSMENT AND PLAN: 1. Diastolic heart failure exacerbation. Continue with Lasix. Will continue to follow. 2. Probable pneumonia of right lower lobe versus effusion. Continue antibiotics as prescribed. No immediate need for thoracentesis related to congestive heart failure. No elevated white blood cells. No fever. Discussed with Dr. Hemphill. CT films were reviewed. 3. Acute on chronic renal failure, stable. Continue diuretics and follow. Thank you for the courtesy of this consult. Dictated by PRISCA Navarro for Pauline Salgado MD cc: PRISCA Navarro MD
--- NOTE | 2019-06-10 21:45 | CONSULTATION ---
DATE OF CONSULTATION: 06/10/2019 CHIEF COMPLAINT: Shortness of breath. HISTORY OF PRESENT ILLNESS: This is a 68-year-old, male, with a past medical history of COPD. He is on continuous supplemental oxygen. Mr. Titus states that he has been having progressive shortness of breath over the past 4 months. He also states that he has a productive cough with sputum white in color. Recent chest CT scan revealed interstitial pulmonary edema, cardiomegaly, bilateral pleural effusions - right greater than left, and severe vascular disease. PAST MEDICAL HISTORY: 1. COPD. 2. Chronic atrial fibrillation. 3. Diabetes mellitus type 2. 4. Hypertension. 5. Hyperlipidemia. 6. Iron deficiency anemia. 7. Coronary artery disease. 8. Depression. SURGICAL HISTORY: 1. Pacemaker placement. 2. Cardiac stents x5. 3. DCCV x2. 4. Left knee surgery. SOCIAL HISTORY: Smoker. Drinks 2 to 3 beers per week. Denies illicit drug use. Lives at home with his daughter. FAMILY HISTORY: Both mother and father had heart disease. Diabetes runs in his family. ALLERGIES: No known drug allergies. HOME MEDICATIONS: Please see home reconciliation list. REVIEW OF SYSTEMS: A 10-point review of systems was obtained and the pertinent is listed within the HPI, otherwise noncontributory. PHYSICAL EXAMINATION: Vital Signs: Temperature 96.6 degrees, respiratory rate 80, blood pressure 129/58, O2 saturation 100 with O2 at 4 L. General: This is a 68-year-old, male, sitting at the bedside in no acute distress at the present time. Appears depressed. HEENT: Head is atraumatic, normocephalic. Pupils equal, round, and reactive to light. Neck: Supple. Trachea midline. Cardiovascular: S1 and S2. Regular rate and rhythm. No gallops, murmurs, or rubs. Pitting edema 2+ in the extremities. Respiratory: Diminished breath sounds. Nonlabored. Abdomen: Soft, nontender, nondistended. Positive bowel sounds in all 4 quadrants. Neurologic: Alert and oriented x3. LABORATORY DATA: White blood cells 6.82, red blood cells 3.48, hemoglobin 9.8, hematocrit 32.2. PH 7.44, pCO2 of 71. INCOMPLETE REPORT - DICTATION ENDS HERE Dictated by PRISCA Navarro for Pauline Salgado MD cc: PRISCA Navarro MD
[2019-06-11] MEDS: DUONEB (A & A) INH SCH ×5 (03:08→20:02)
--- NOTE | 2019-06-11 05:55 | Diag Imaging Result Doc PS360 ---
EXAM: CHEST-1 VIEW HISTORY: SOB TECHNIQUE: Chest single view COMPARISON: 06/10/2019 FINDINGS: There is a moderate-sized right pleural effusion with a small left effusion. The heart is enlarged and there is mild pulmonary edema. There is a right-sided pacemaker. The upper and mid lungs are clear. IMPRESSION: No interval improvement. Electronically signed by Rene Balbuena 06/11/2019 5:52 AM
[2019-06-11] MEDS ORDERED: SOLU-MEDROL IV SCH (06:00)
[2019-06-11] MEDS: DOXYCYCLINE 100 MG in NS 250 ML IV SCH ×2 (06:27→18:22)
[2019-06-11] MEDS: LASIX IV SCH ×2 (06:27→18:22)
[2019-06-11] MEDS: PRILOSEC PO SCH (06:27)
[2019-06-11] MEDS: HUMULIN R SUBQ SCH ×4 (06:28→21:55)
[2019-06-11 06:47] LABS: EOS# 0.08 X1000 (0.0-0.7); EOS% 1.1 % (0.0-10.0); HEMATOCRIT 33.9 % (42.0-52.0); HEMOGLOBIN 10.1 g/dL (14.0-18.0); IMM GRAN# 0.02 X1000 (0.0-0.04); IMM GRAN% 0.3 % (0.0-0.5); LYMPH# 1.17 X1000 (1.2-3.4); LYMPH% 15.9 % (20.5-51.1); MCH 27.7 PG (27-31); MCHC 29.8 g/dL (33-37); MCV 93.1 FL (81-99); MONO# 0.61 X1000 (0.11-0.59); MONO% 8.3 % (1.7-9.3); MPV 12.2 FL (7.4-10.4); NEUT# 5.49 X1000 (1.4-6.5); NEUT% 74.4 % (42.2-75.2); PLT 159 X1000 (130-400); RBC 3.64 XMIL (4.7-6.1); RDW 16.6 % (11.5-14.5); WBC 7.37 X1000 (4.8-10.8)
[2019-06-11 07:08] LABS: AGAP 7; BUN 30 mg/dL (8-22); CALCIUM 8.7 mg/dL (8.8-10.2); CHLORIDE 88 mmol/L (98-107); COSMO 289; ESTIMATED GFR > 60; GLUCOSE 197 mg/dL (70-104); MAGNESIUM 1.8 mg/dL (1.5-2.7); POTASSIUM 3.3 mmol/L (3.5-5.1); SODIUM 139 mmol/L (136-145); TCO2 44 mmol/L (25-35)
[2019-06-11] MEDS: ALDACTONE PO SCH ×2 (09:06→21:55)
[2019-06-11] MEDS: ICAR-C PO SCH ×2 (09:06→21:55)
[2019-06-11] MEDS: TOPROL XL PO SCH (09:06)
[2019-06-11] MEDS: COZAAR PO SCH (09:06)
[2019-06-11] MEDS: HEMOCYTE PLUS CAPSULE PO SCH (09:06)
[2019-06-11] MEDS: CYMBALTA PO SCH (09:06)
[2019-06-11] MEDS: ZAROXOLYN PO SCH (09:06)
[2019-06-11] MEDS: ROCEPHIN 1 GM in NS 50 ML IV SCH (09:07)
[2019-06-11] MEDS: MIRALAX PO SCH (09:07)
[2019-06-11] MEDS ORDERED: MAGNESIUM SULFATE 2 GM/S.W.I. 2 GM/50 ML IVPB IV ONE (14:34)
--- NOTE | 2019-06-11 14:45 | CARDIOLOGY PROGRESS NOTE ---
DATE: 06/11/2019 SUBJECTIVE: Mr. Titus reports he feels somewhat better. He has no complaints today other than continued mild shortness of breath. PHYSICAL EXAMINATION: Vital Signs: The patient is afebrile. Heart rate 80. Blood pressure 139/54. His intake and output continue to be on a negative trend with a total of 6.9 L out. General: He is in no acute distress. Cardiovascular: He sounds to be in an irregularly irregular rhythm. He has no murmurs. He has no S3. He has 1+ bilateral lower extremity edema. Chest: Exam is clear bilaterally. PERTINENT DATA: Sodium is 139, potassium 3.3, BUN 30, creatinine is 1. These both continue to improve. His proBNP is 3195 which is improved. ASSESSMENT: Mr. Titus is a 68-year-old gentleman with atrial fibrillation and heart failure. PLAN: We will continue on the current course of action. He is diuresing. He seems to be doing well. We will replete his electrolytes including giving him some magnesium as well as potassium. cc: Fabrice Elmore MD
[2019-06-11] MEDS: POTASSIUM CHLORIDE 20% LIQUID PO SCH ×2 (15:24→21:58)
--- NOTE | 2019-06-11 16:56 | PROGRESS NOTE ---
DATE: 06/11/2019 SUBJECTIVE: Patient has no major complaints. OBJECTIVE: Blood pressure 118/60, heart rate of 80, respiratory 16, temperature 98.8 degrees.Cardiovascular: Regular rate and rhythm. Pulmonary: Bilateral breath sounds clear to auscultation. GI: Soft, nontender, nondistended. Bowel sounds are positive. LABORATORY DATA: White count 7, hemoglobin and hematocrit 10 and 33, platelets 159,000. Potassium 3.3, BUN 30, sugar 373. ProBNP 3195. PROBLEM LIST: 1. Diastolic heart failure. We will continue diuretics and follow closely. 2. Right lower lobe pneumonia. Patient is on antibiotics Rocephin 1, 2, 3, 4 days. 3. Chronic obstructive pulmonary disease exacerbation. Breathing is improved. I stopped his steroids. 4. Questionable lower gastrointestinal bleed with symptomatic anemia. Hemoglobin and hematocrit is stable. We will discuss with GI about timing endoscopy possibly for Wednesday. 5. Right lower lobe effusion. We will repeat his chest x-ray tomorrow. I think if he has a persistent effusion we may need to revisit doing a thoracentesis. Dr. Salgado feels at this point it is not emergent but the problem is we cannot hold his aspirin and Plavix indefinitely so we will reassess that tomorrow and anticipate thoracentesis possibly tomorrow versus Wednesday, that will be about 4 or 5 days after holding aspirin and Plavix. We will continue to follow but overall he seems improved. 6. Hypokalemia. We will supplement and follow. cc: Ben Hemphill MD
[2019-06-11] MEDS: LIPITOR PO SCH (21:55)
[2019-06-12] MEDS: DUONEB (A & A) INH SCH ×8 (00:08→22:34)
[2019-06-12 04:36] LABS: ALLEN TEST YES; BE 23.6 mmoll (-3.0-3.0); BLOOD TYPE ARTERIAL; HCO3-(ACT) 43.3 mmoll (20.0-26.0); METHB 1.2 % (0.0-1.5); O2(CT) 14.4 mL/dL (15.0-23.0); O2HB 95.8 % (95.0-99.0); PO2(98.6) 94 mmHg (60-100); SAMPLE BLOOD; SAO2 99.5 % (95.0-100.0); SRATE 12 BPM; THB 10.6 g/dL (11.5-17.4); pH(98.6) 7.44 (7.35-7.45)
[2019-06-12 04:46] LABS: MODALITY BI PAP; PCO2(98.6) 76 mmHg (35-45)
[2019-06-12] MEDS: DOXYCYCLINE 100 MG in NS 250 ML IV SCH ×2 (06:11→18:38)
[2019-06-12] MEDS: LASIX IV SCH ×2 (06:12→18:39)
[2019-06-12] MEDS: HUMULIN R SUBQ SCH ×4 (06:12→21:30)
[2019-06-12] MEDS: PRILOSEC PO SCH (06:12)
[2019-06-12 07:29] LABS: EOS# 0.17 X1000 (0.0-0.7); EOS% 1.9 % (0.0-10.0); HEMATOCRIT 34.6 % (42.0-52.0); HEMOGLOBIN 10.5 g/dL (14.0-18.0); IMM GRAN# 0.03 X1000 (0.0-0.04); IMM GRAN% 0.3 % (0.0-0.5); LYMPH# 1.67 X1000 (1.2-3.4); LYMPH% 18.3 % (20.5-51.1); MCH 28.1 PG (27-31); MCHC 30.3 g/dL (33-37); MCV 92.5 FL (81-99); MONO# 0.67 X1000 (0.11-0.59); MONO% 7.3 % (1.7-9.3); MPV 12.1 FL (7.4-10.4); NEUT% 72.2 % (42.2-75.2); PLT 182 X1000 (130-400); RBC 3.74 XMIL (4.7-6.1); RDW 16.9 % (11.5-14.5); WBC 9.14 X1000 (4.8-10.8)
--- NOTE | 2019-06-12 07:54 | Diag Imaging Result Doc PS360 ---
EXAM: CHEST-2 VIEWS 06/12/2019 HISTORY: hypoxia TECHNIQUE: PA and lateral chest COMMENT: There is a right pleural effusion and apparently atelectasis in the right middle lobe. There is some volume loss on the right despite the presence of the pleural effusion. The left lung is better expanded than it was on 06/11/2019. There is minimal residual platelike atelectasis in the left base. The heart size and primary vascularity are within normal limits. IMPRESSION: Right pleural effusion and right middle lobe and lower lobe atelectasis. Electronically signed by Gerald Taylor 06/12/2019 7:52 AM
[2019-06-12 07:59] LABS: AGAP 9; BUN 27 mg/dL (8-22); CALCIUM 9.7 mg/dL (8.8-10.2); CHLORIDE 87 mmol/L (98-107); COSMO 288; CREATININE 1.1 mg/dL (0.7-1.2); ESTIMATED GFR > 60; GLUCOSE 186 mg/dL (70-104); POTASSIUM 3.9 mmol/L (3.5-5.1); SODIUM 139 mmol/L (136-145); TCO2 43 mmol/L (25-35)
[2019-06-12] MEDS: ICAR-C PO SCH ×2 (10:34→21:28)
[2019-06-12] MEDS: COZAAR PO SCH (10:34)
[2019-06-12] MEDS: ZAROXOLYN PO SCH (10:34)
[2019-06-12] MEDS: HEMOCYTE PLUS CAPSULE PO SCH (10:35)
[2019-06-12] MEDS: ROCEPHIN 1 GM in NS 50 ML IV SCH (10:35)
[2019-06-12] MEDS: TOPROL XL PO SCH (10:35)
[2019-06-12] MEDS: MIRALAX PO SCH (10:35)
[2019-06-12] MEDS: CYMBALTA PO SCH (10:35)
[2019-06-12] MEDS: ALDACTONE PO SCH ×2 (11:03→21:28)
--- NOTE | 2019-06-12 11:19 | Diag Imaging Result Doc PS360 ---
EXAM: MUGA (GATED CARDIAC SCAN) INDICATION: evaluate ef TECHNIQUE: 23.5 mCi of technetium 99 pertechnetate and cold PYP were used for red blood cell tagging. COMPARISON: None. FINDINGS: No ventricular wall motion abnormalities are identified. The calculated left ventricular ejection fraction is 71%. IMPRESSION: Normal left ventricular ejection fraction. Electronically signed by Davide Newby 06/12/2019 11:17 AM
--- NOTE | 2019-06-12 13:55 | EKG Report ---
Test Performed on : 06/12/2019 11:49:52 AM Test Reason : dyspnea Blood Pressure : / mmHG Vent. Rate : 080 BPM Atrial Rate : 202 BPM P-R Int : 000 ms QRS Dur : 192 ms QT Int : 470 ms P-R-T Axes : 000 -77 094 degrees QTc Int : 542 ms Ventricular-paced rhythm Abnormal ECG When compared with ECG of 05-JUN-2019 09:40, (Unconfirmed) Sinus rhythm. is no longer with complete heart block. Vent. rate has decreased BY 2 BPM Confirmed by Mita Naidu MD ([id number]) on 06/12/2019 4:12:00 PM
--- NOTE | 2019-06-12 14:45 | GASTROENTEROLOGY PROGRESS NOTE ---
DATE: 06/12/2019 ATTENDING PHYSICIAN: Dr. Hemphill. PRIMARY CARE DOCTOR: Dr. James Titus. SUBJECTIVE: Patient resting in bed. He came back from a MUGA scan. The results are currently pending. The patient denies any nausea, vomiting, vomiting blood, or passing blood in the stools. He has history of coronary artery disease, history of multiple coronary stents. He was on aspirin and Plavix that have been withheld. This is day 4. We will evaluate him tomorrow. Most likely he will need EGD colonoscopy to workup anemia while he is off aspirin and Plavix on Wednesday. We Will also follow the results of the MUGA which was done today. OBJECTIVE: Vital Signs: Temperature 98.2 degrees, pulse of 81, respiratory rate 19, blood pressure 125/66, saturating 100% on 4 L nasal cannula. Body weight of 258 pounds 12.8 ounces. BMI of 36.1 kg. General: Obese sitting in bed, in no acute distress. HEENT: Pale conjunctivae. No icterus. Neck: Supple. Abdomen: Obese. No guarding or rebound. Extremities: Bilateral lower extremity edema noted 1+, no rebound or guarding. Neurologic: Alert, awake, oriented x3. LABORATORY DATA: His hemoglobin and hematocrit is 10.5 and 34.6, white count 9.14, platelet count of 182,000. ABG showing pH 7.44, pCO2 of 76, PO2 94. This is on BiPAP at FiO2 of 35%. Sodium 139, potassium 3.9, chloride of 87, BUN 27, glucose 186, calcium 9.7, magnesium 2.0. Urine culture showing no growth. Stool occult blood was positive. Sputum culture is pending from 06/08. Chest x-ray done today showed right pleural effusion and right middle lobe and lower lobe atelectasis. IMPRESSION AND PLAN: 1. Anemia. Continue to watch. Hemoglobin and hematocrit is stable. He did have positive Hemoccult. He is off his aspirin and Plavix since day 4. Most likely, we will schedule him for EGD and colonoscopy on Wednesday. Will follow results of MUGA scan which was done today. 2. Congestive heart failure. Continue diuresis per Cardiology. Continue to watch electrolytes and replete them. 3. Type 2 diabetes. Continue sliding scale insulin. 4. Constipation. Continue MiraLAX. 5. Obesity. Patient counseled to lose weight. 6. History of coronary artery disease status post stents, being followed by Cardiology. 7. Anemia. Aware and transfuse as needed. 8. Atrial fibrillation and atrial flutter. Aware, being managed by Cardiology. 9. Status post dual chamber ICD, aware. 10. Right-sided pleural effusion. This is being followed by Dr. Hemphill. He may need a thoracocentesis. 11. Chronic obstructive pulmonary disease on 3 L home oxygen. Aware. 12. Respiratory failure. He is on nasal cannula now. Most likely, we will do EGD colonoscopy on Wednesday as he is on aspirin and Plavix and if his respiratory status continues to improve, we will follow MUGA scan before deciding on EGD and colonoscopy. The above plans discussed with the patient and all questions answered. Please call us if any further questions. cc: MD Ben Virk MD Luis N. Villanueva, MD Chris B. Russell MTDD
--- NOTE | 2019-06-12 16:47 | PROGRESS NOTE ---
DATE: 06/12/2019 SUBJECTIVE: The patient has no major complaints. OBJECTIVE: Vital signs: Blood pressure 109/54, heart rate of 77, respiratory rate of 19, temperature 98.5 degrees, 94% on 5 L. Cardiovascular: Regular rate and rhythm. Pulmonary: Bilateral breath sounds. Clear to auscultation. GI: Soft, nontender, nondistended. Bowel sounds are positive. Extremities: He still has about 2+ pitting edema in his lower extremities. LABORATORY DATA: White count 9, hemoglobin and hematocrit 10 and 34, platelets 182,000. PH 7.44, pCO2 76, PaO2 94. Creatinine 1.1. Sugar is still up, 417. PROBLEM LIST: 1. Presumed diastolic heart failure. He is on diuretics. His MUGA suggests that he has a normal EF but still could be diastolic heart failure. Cardiology is following. 2. Right lower lobe pneumonia. He is on Rocephin, day 5. Continue breathing treatments. 3. Chronic obstructive pulmonary disease exacerbation. Again, breathing has overall improved. We will continue nebulizers. We stopped his steroids. 4. Lower gastrointestinal bleed, symptomatic anemia. Gastroenterology is planning for endoscopy in the next 1 to 2 days. 5. Right lower lobe persistent effusions. We are going to look at trying to do thoracentesis tomorrow and follow. cc: Ben Hemphill MD
[2019-06-12] MEDS: LIPITOR PO SCH (21:28)
[2019-06-13] MEDS: DUONEB (A & A) INH SCH ×6 (03:47→23:34)
[2019-06-13 04:58] LABS: BE 25.3 mmoll (-3.0-3.0); BLOOD TYPE ARTERIAL; HCO3-(ACT) 44.6 mmoll (20.0-26.0); METHB 0.9 % (0.0-1.5); O2(CT) 16.9 mL/dL (15.0-23.0); O2HB 92.9 % (95.0-99.0); PO2(98.6) 70 mmHg (60-100); SAMPLE BLOOD; SAO2 96.1 % (95.0-100.0); THB 12.9 g/dL (11.5-17.4); pH(98.6) 7.49 (7.35-7.45)
[2019-06-13 05:01] LABS: ALLEN TEST YES; MODALITY CANNULA
[2019-06-13 05:02] LABS: PCO2(98.6) 70 mmHg (35-45)
[2019-06-13] MEDS: DOXYCYCLINE 100 MG in NS 250 ML IV SCH ×2 (05:41→17:19)
[2019-06-13] MEDS: LASIX IV SCH ×2 (05:45→17:22)
[2019-06-13] MEDS: PRILOSEC PO SCH (06:06)
[2019-06-13] MEDS: HUMULIN R SUBQ SCH ×5 (06:07→21:33)
[2019-06-13 07:15] LABS: EOS# 0.22 X1000 (0.0-0.7); EOS% 2.6 % (0.0-10.0); HEMOGLOBIN 11.6 g/dL (14.0-18.0); IMM GRAN# 0.02 X1000 (0.0-0.04); IMM GRAN% 0.2 % (0.0-0.5); LYMPH# 1.24 X1000 (1.2-3.4); LYMPH% 14.8 % (20.5-51.1); MCH 28.2 PG (27-31); MCHC 30.5 g/dL (33-37); MCV 92.5 FL (81-99); MONO# 0.74 X1000 (0.11-0.59); MONO% 8.8 % (1.7-9.3); MPV 11.8 FL (7.4-10.4); NEUT# 6.18 X1000 (1.4-6.5); NEUT% 73.6 % (42.2-75.2); PLT 192 X1000 (130-400); RBC 4.11 XMIL (4.7-6.1); RDW 16.8 % (11.5-14.5)
[2019-06-13 07:39] LABS: ESTIMATED GFR > 60
[2019-06-13 07:40] LABS: AGAP 10; BUN 18 mg/dL (8-22); CALCIUM 10.1 mg/dL (8.8-10.2); CHLORIDE 86 mmol/L (98-107); COSMO 281; CREATININE 0.9 mg/dL (0.7-1.2); GLUCOSE 134 mg/dL (70-104); MAGNESIUM 1.8 mg/dL (1.5-2.7); POTASSIUM 3.9 mmol/L (3.5-5.1); SODIUM 139 mmol/L (136-145); TCO2 43 mmol/L (25-35)
[2019-06-13] MEDS: MIRALAX PO SCH (08:50)
[2019-06-13] MEDS: ZAROXOLYN PO SCH (08:50)
[2019-06-13] MEDS: COZAAR PO SCH (08:51)
[2019-06-13] MEDS: ICAR-C PO SCH ×2 (08:51→21:34)
[2019-06-13] MEDS: ALDACTONE PO SCH ×2 (08:51→21:34)
[2019-06-13] MEDS: HEMOCYTE PLUS CAPSULE PO SCH (08:51)
[2019-06-13] MEDS: CYMBALTA PO SCH (08:52)
[2019-06-13] MEDS: TOPROL XL PO SCH (08:52)
[2019-06-13] MEDS: ROCEPHIN 1 GM in NS 50 ML IV SCH (09:00)
--- NOTE | 2019-06-13 12:00 | Diag Imaging Result Doc PS360 ---
EXAM: CHEST-1 VIEW 06/13/2019 HISTORY: post thorancentesis TECHNIQUE: AP chest COMMENT: There is no evidence of pneumothorax. There is some volume loss on the right. There is cardiomegaly. The possibility of residual pleural fluid on the right cannot be excluded. Compared to the previous study of 06/12/2019 otherwise are has been no significant change. IMPRESSION: Atelectasis plus minus pleural effusion on the right. Electronically signed by Gerald Taylor 06/13/2019 11:57 AM
--- NOTE | 2019-06-13 12:42 | PROGRESS NOTE ---
DATE: 06/13/2019 SUBJECTIVE: Patient has no major complaints. OBJECTIVE: Blood pressure is stable at 122/53, heart rate 78, respiratory rate 19, temperature 98.3 degrees, 100% on room air. Cardiovascular: Regular rate and rhythm. Pulmonary: Bilateral breath sounds clear to auscultation. Diminished at the right base. GI: Soft, nontender, nondistended. Bowel sounds were positive. Laboratory Data: White count 8, hemoglobin and hematocrit 11 and 38, platelets 192,000. PH 7.49, pCO2 of 70, PaO2 of 70. BUN and creatinine of 18 and 0.9, bicarb is 43. Chest x-ray still shows right lower lobe effusion. PROBLEM LIST: 1. Diastolic heart failure. We will continue diuresis. Cardiology is following. I appreciate their input. 2. Right lower lobe pneumonia, putative. Continue empiric antibiotics. He is on Rocephin day 6. Breathing treatments. 3. Chronic obstructive pulmonary disease exacerbation. Continue breathing treatments. Wheezing has improved so I have discontinued steroids. 4. Anemia of iron deficiency. There is not clear evidence he is having a bleed. His hemoglobin and hematocrit have been stable for several days. If anything, it is going up, probably because of hemoconcentration but gastroenterology is following. He is off blood thinners. I think we do need to resume them as soon as we can because of his relatively recent stent. We will discuss with cardiology and follow. I discussed with Dr. Goode. He felt that when he is adequately diuresed and we are ready to get him situated, then we will pursue endoscopy. Again, there is not a clear bleeding issue. The problem is I do not want to take him off his medications. 5. Diabetes is not under control but he is not getting his regular medications. We are going to resume his glimepiride and metformin, and follow his blood sugars. He is off steroids. We will continue sliding scale insulin. 6. Right pleural effusion. I went ahead and pursued a thoracentesis. We got about 500 mL off but he still has persistent fluid there. We will analyze it and see if we need to do any more intervention from that standpoint, but it does look at least on superficial exam to be transudative. Pulmonary is following and will assist us with that as well. 7. Disposition, just pending his clinical status. He may need rehab. We will continue to work on strength training and follow. cc: Ben Hemphill MD
--- NOTE | 2019-06-13 14:01 | OPERATIVE NOTE ---
PROCEDURE DATE: 06/13/2019 PROCEDURE: Thoracentesis INDICATIONS: Right pleural effusion. DESCRIPTION OF PROCEDURE: The patient was prepped in sterile fashion. Time-out was performed. The ultrasound was marked. He was about 3 to 4 cm to the pocket, and about another 2 cm to the center of the pocket. He was anesthetized locally after sterilization with chlorhexidine with 1% lidocaine. We were unable to aspirate the clear straw-colored fluid immediately. Catheter was placed and adjusted a little bit to get fluid to flow. Non bloody fluid was obtained. We got about 500 mL off before we discontinued. There was no air and no blood was aspirated. Specimens were sent off. Chest x-ray confirms removal, although there is still pretty significant pleural effusion left. No pneumothorax. The patient tolerated the procedure well. cc: Ben Hemphill MD MTDD
[2019-06-13 14:21] LABS: AMYLASE BODY FLUID 28 U/L; GLUCOSE BODY FLUID 288 mg/dL; LDH BODY FLUID 96 U/L; TOTAL PROT BODY FLUID 2.5 g/dL
[2019-06-13] MEDS: TYLENOL PO PRN (14:34)
[2019-06-13 15:09] LABS: BODY FLUID SOURCE PLEURAL FLUID; SPECIMEN PLEURAL FLUID; WBC BF 230 /cumm
[2019-06-13 15:41] LABS: POLYS 20 %
[2019-06-13 15:42] LABS: MONOS 80 %
[2019-06-13] MEDS: AMARYL PO SCH (17:19)
[2019-06-13] MEDS: GLUCOPHAGE PO SCH (17:19)
[2019-06-13 17:25] LABS: UR PROTEIN 4.5 mg/dL
--- NOTE | 2019-06-13 21:12 | PROVIDER PROGRESS NOTE ---
Progress Note S: No acute overnight events. Afebrile. Patient reports baseline SOB. He remains on 4L NC. +LE edema. No abdominal pain, N/V. Tolerating PO. O: Last Vital Signs Temp 99.2 F 06/13/19 19:13 Pulse 80 06/13/19 19:33 Resp 18 06/13/19 19:33 BP 102/45 06/13/19 19:13 Pulse Ox 96 06/13/19 19:33 Height 5 ft 11 in Weight 256 lb 8.9 oz 4L NC GEN: awake, alert, NAD HEENT: anicteric, MMM NECK: supple CV: RRR, no murmurs PULM: decreased BS throughout, no wheezing ABD: soft NT/ND, NABS EXT: 3+ LE edema NEURO: nonfocal LABS: 06/13/19 06/13/19 06/13/19 04:55 06:50 06:50 WBC 8.40 Hgb 11.6 L Plt Count 192 pH 7.49 H pCO2 70 H* Sodium 139 Potassium 3.9 Chloride 86 L Carbon Dioxide 43 H BUN 18 Creatinine 0.9 Glucose 134 H EXAM: CHEST- VIEW 06/13/2019 HISTORY: post thorancentesis TECHNIQUE: AP chest COMMENT: There is no evidence of pneumothorax. There is some volume loss on the right. There is cardiomegaly. The possibility of residual pleural fluid on the right cannot be excluded. Compared to the previous study of 06/12/2019 otherwise are has been no significant change. IMPRESSION: Atelectasis plus minus pleural effusion on the right. A/P: Mr. Sergio Titus is a 68 year old man with CAD s/p stents, chronic normocytic anemia, afib/flutter, s/p dual-chamber ICD, DM2, left pleural effusion, and COPD on 3L home O2 who presented with CHF exacerbation. GI consulted for chronic anemia. His anemia has been stable since 03/2019. It is actually higher than admission. Same hgb as 11/2018. No overt bleeding. His aspirin and plavix have been held. Recommend continued diuresis and weaning O2. He is high anesthesia risk given his cardiopulmonary status. He should be eu volemic prior to any endoscopic procedure. He is not having a GI bleed at this time. # Anemia: - trend H/H, call if he develops visible GI bleeding or if he develops downtrending hgb - call back once patient is euvolemic and nearing discharge, we can consider diagnostic EGD/colonoscopy at that time - ok to resume aspirin and plavix from GI perspective. Antiplatelet therapy is not a contraindication for diagnostic EGD/colonoscopy # HEFpEF: continue duiresis as per cardiology # DM2: improved glycemic control # Constipation: continue miralax Will follow peripherally. Please call with questions
[2019-06-13] MEDS: LIPITOR PO SCH (21:34)
[2019-06-14] MEDS: DUONEB (A & A) INH SCH ×6 (03:34→23:23)
[2019-06-14] MEDS: LASIX IV SCH (05:34)
[2019-06-14] MEDS: LOVENOX SUBQ SCH (05:35)
[2019-06-14] MEDS: DOXYCYCLINE 100 MG in NS 250 ML IV SCH ×2 (05:35→17:25)
[2019-06-14] MEDS: PRILOSEC PO SCH (06:01)
[2019-06-14] MEDS: HUMULIN R SUBQ SCH ×4 (06:08→22:11)
[2019-06-14 07:48] LABS: BASO# 0.01 X1000 (0.0-0.2); BASO% 0.1 % (0.0-0.8); EOS# 0.12 X1000 (0.0-0.7); EOS% 1.5 % (0.0-10.0); HEMATOCRIT 34.2 % (42.0-52.0); HEMOGLOBIN 10.6 g/dL (14.0-18.0); IMM GRAN# 0.03 X1000 (0.0-0.04); IMM GRAN% 0.4 % (0.0-0.5); LYMPH# 1.23 X1000 (1.2-3.4); MCH 28.4 PG (27-31); MCV 91.7 FL (81-99); MONO# 0.64 X1000 (0.11-0.59); MONO% 7.8 % (1.7-9.3); MPV 11.7 FL (7.4-10.4); NEUT# 6.15 X1000 (1.4-6.5); NEUT% 75.2 % (42.2-75.2); PLT 174 X1000 (130-400); RBC 3.73 XMIL (4.7-6.1); RDW 16.9 % (11.5-14.5); WBC 8.18 X1000 (4.8-10.8)
[2019-06-14 08:08] LABS: ALB/GLOB RATIO 1.5; ALBUMIN 3.7 g/dL (3.5-5.0); DIRECT BILIRUBIN 0.3 mg/dL (0.00-0.20); TOTAL BILIRUBIN 0.7 mg/dL (0.20-1.00); TOTAL PROTEIN 6.2 g/dL (6.3-8.3)
[2019-06-14 08:10] LABS: CALCIUM 8.7 mg/dL (8.8-10.2); CREATININE 1.2 mg/dL (0.7-1.2); POTASSIUM 4.2 mmol/L (3.5-5.1)
[2019-06-14] MEDS: MIRALAX PO SCH (08:39)
[2019-06-14] MEDS: ZAROXOLYN PO SCH (08:39)
[2019-06-14] MEDS: ASPIRIN EC PO SCH (08:40)
[2019-06-14] MEDS: ICAR-C PO SCH ×2 (08:40→22:09)
[2019-06-14] MEDS: GLUCOPHAGE PO SCH ×2 (08:40→17:26)
[2019-06-14] MEDS: HEMOCYTE PLUS CAPSULE PO SCH (08:40)
[2019-06-14] MEDS: CYMBALTA PO SCH (08:40)
[2019-06-14] MEDS: COZAAR PO SCH (08:40)
[2019-06-14] MEDS: ALDACTONE PO SCH ×2 (08:40→22:09)
[2019-06-14] MEDS: TOPROL XL PO SCH (08:40)
[2019-06-14] MEDS: AMARYL PO SCH ×2 (08:41→17:26)
[2019-06-14] MEDS: ROCEPHIN 1 GM in NS 50 ML IV SCH (10:54)
--- NOTE | 2019-06-14 10:57 | Diag Imaging Result Doc PS360 ---
EXAM: CHEST-2 VIEWS 06/14/2019 HISTORY: hypoxia TECHNIQUE: PA and lateral chest COMMENT: There is an apparent right pleural effusion. The atelectasis which was presumably present on 06/13/2019 and the right lower and middle lobe have improved. IMPRESSION: Improving right basilar atelectasis. Right pleural effusion. Electronically signed by Gerald Taylor 06/14/2019 10:54 AM
--- NOTE | 2019-06-14 15:10 | PROVIDER PROGRESS NOTE ---
Progress Note S: Patient reports some mild improvement in SOB with thoracentesis yesterday. No acute overnight events. Afebrile. No N/V/F, CP, abdominal pain, diarrhea. He reports having "black stool" that is formed attributed to taking iron. O: Last Vital Signs Temp 98.7 F 06/14/19 14:36 Pulse 80 06/14/19 14:36 Resp 22 06/14/19 14:36 BP 96/59 06/14/19 14:36 Pulse Ox 100 06/14/19 14:36 Height 5 ft 11 in Weight 255 lb 7 oz 4L NC GEN: awake, alert, NAD HEENT: anicteric, MMM NECK: supple CV: RRR, no murmurs PULM: CTAB, no wheezing ABD: soft NT/ND, NABS EXT: 3+ LE edema NEURO: nonfocal LABS: 06/13/19 06/13/19 06/13/19 04:55 06:50 06:50 WBC 8.40 Hgb 11.6 L Plt Count 192 pH 7.49 H pCO2 70 H* Sodium 139 Potassium 3.9 Chloride 86 L Carbon Dioxide 43 H BUN 18 Creatinine 0.9 Glucose 134 H EXAM: CHEST- VIEW 06/13/2019 HISTORY: post thorancentesis TECHNIQUE: AP chest COMMENT: There is no evidence of pneumothorax. There is some volume loss on the right. There is cardiomegaly. The possibility of residual pleural fluid on the right cannot be excluded. Compared to the previous study of 06/12/2019 otherwise are has been no significant change. IMPRESSION: Atelectasis plus minus pleural effusion on the right. A/P: Mr. Sergio Titus is a 68 year old man with CAD s/p stents, chronic normocytic anemia, afib/flutter, s/p dual-chamber ICD, DM2, left pleural effusion, and COPD on 3L home O2 who presented with HEFpEF exacerbation. GI consulted for chronic anemia. His anemia has been stable since 11/2018. No overt bleeding. FOBT negative here. It is unclear why his O2 requirement is so high. I suspect it may be from underlying COPD. I wonder if patient has a component of pulmonary hypertension as his lung exam is near clear. Recommend continued diuresis and weaning O2. He is high anesthesia risk given his volume overload and O2 requirements. He is not having a GI bleed at this time. I would recommend outpatient EGD and colonoscopy once patient is euvolemic. # Anemia: - continue oral iron - ok to resume aspirin and plavix from GI perspective. - Antiplatelet therapy is not a contraindication for outpatient diagnostic EGD/colonoscopy # HEFpEF: continue duiresis as per cardiology # DM2: improved glycemic control # Constipation: controlled; continue miralax # COPD: mgmt per primary and pulmonary Will sign off. Please have patient follow-up in 2-4 weeks after discharge. Call with questions
--- NOTE | 2019-06-14 17:08 | PROGRESS NOTE ---
DATE: 06/14/2019 SUBJECTIVE: Patient has no major complaints. OBJECTIVE: Blood pressure is 96/59, heart rate 80, respiratory rate 16, temperature 98.7 degrees, 97% on 4 L.Cardiovascular: Regular rate and rhythm. Pulmonary: Bilateral breath sounds clear to auscultation. Gastrointestinal: Soft, nontender, nondistended. Bowel sounds are positive. LABORATORY DATA: White count 8, hemoglobin 10, hematocrit 34, platelets 174,000. BUN 20, creatinine 1.2, glucose 203. Pleural fluid looks transudative. PH was a bit low but white blood cell count was 230. Total protein was 2.5 versus a total protein of 6.2 and was greater than 0.5. LDH was 96 with an LDH of 204 so again all that is consistent with transudative, likely related to heart failure and there is no infectious process. Chest x-ray actually looks a little bit better. PLAN: Today plan will be to continue strength training because patient refuses rehabilitation. ASSESSMENT: 1. Diastolic heart failure. I am going to change him to p.o. Lasix. Dr. Martinez feels like he is pretty close to his dry weight based on conversation yesterday. 2. Right lower lobe pneumonia. He is on day 7 of Rocephin. May consider 3 more days just to complete his course. 3. Chronic obstructive pulmonary disease. He is stable on breathing treatments. 4. Anemia. Hemoglobin and hematocrit are stable. He is heme negative. Dr. Goode feels that he needs to recuperate from this, and endoscopy can be done as an outpatient and just to resume his aspirin and Plavix. 5. Type 2 diabetes, stable. 6. Right pleural effusion. Lungs a bit more expanded. Looked transudative. DISPOSITION: I think once he is walking a little bit more, I anticipate he could probably go home in the next day or 2. He does not want to go to rehabilitation and he does not want any home therapy and he actually refused rehabilitation. I think he probably needs CPAP, but he refuses CPAP, so we will see how he does. It is a difficult situation because he really does not want a lot a help, but we will follow. Anticipate discharge soon. He did participate in rehabilitation today, though. cc: Ben Hemphill MD
[2019-06-14] MEDS: LASIX PO SCH (22:09)
[2019-06-14] MEDS: LIPITOR PO SCH (22:09)
[2019-06-15] MEDS: DUONEB (A & A) INH SCH ×6 (03:17→23:48)
[2019-06-15] MEDS: LOVENOX SUBQ SCH (06:01)
[2019-06-15] MEDS: PRILOSEC PO SCH (06:01)
[2019-06-15] MEDS: DOXYCYCLINE 100 MG in NS 250 ML IV SCH ×2 (06:01→18:30)
[2019-06-15] MEDS: HUMULIN R SUBQ SCH ×5 (06:10→20:28)
[2019-06-15] MEDS: AMARYL PO SCH ×2 (08:19→16:38)
[2019-06-15] MEDS: COZAAR PO SCH (08:19)
[2019-06-15] MEDS: HEMOCYTE PLUS CAPSULE PO SCH (08:19)
[2019-06-15] MEDS: ZAROXOLYN PO SCH (08:19)
[2019-06-15] MEDS: TOPROL XL PO SCH (08:19)
[2019-06-15] MEDS: ALDACTONE PO SCH ×2 (08:19→20:44)
[2019-06-15] MEDS: MIRALAX PO SCH (08:19)
[2019-06-15] MEDS: GLUCOPHAGE PO SCH ×2 (08:19→16:38)
[2019-06-15] MEDS: ICAR-C PO SCH ×2 (08:19→20:44)
[2019-06-15] MEDS: ASPIRIN EC PO SCH (08:20)
[2019-06-15] MEDS: LASIX PO SCH ×2 (08:20→20:44)
[2019-06-15] MEDS: CYMBALTA PO SCH (08:22)
[2019-06-15] MEDS: ROCEPHIN 1 GM in NS 50 ML IV SCH (10:59)
[2019-06-15] MEDS ORDERED: PLAVIX PO ONE (15:13)
--- NOTE | 2019-06-15 16:45 | PROGRESS NOTE ---
DATE: 06/15/2019 SUBJECTIVE: Patient is feeling better. He is complaining of foot pain. He has some blisters and it is covered with a dressing which looks clean. Wound care has been done 2 days ago. He is feeling better. He is still complaining of some shortness of breath. I talked to him about rehab because he is not walking too much and he is really weak. Occupational therapy and physical therapy have been on board. He will think about rehab versus home health and physical therapy at home with wound care and he will let me know. OBJECTIVE: Vital Signs: Temperature 98.1 degrees, pulse 80, respiratory rate 17, blood pressure 137/46, oxygen saturation 94% on 3 L of nasal cannula. HEENT: Head normocephalic. No trauma. PERRLA. Neck: Supple. No JVD. No masses. Central trachea. Chest: Decreased breath sounds globally with some crepitus at the right base. Prolonged expiratory phase. Abdomen: Soft, nontender, nondistended. No hepatosplenomegaly. Extremities: No edema. His right foot is covered with a dressing. He has some signs of edema. I do not think it is infected. He has some blisters as well, probably due to swelling but it looks better. Wound care on board. Neurological: The patient is alert and oriented x3. No focal deficits. LABORATORY: Glucose 242. ASSESSMENT AND PLAN: 1. Diastolic heart failure. Continue with same management. We are getting good diuresis. Cardiology has been following this patient. Hopefully, we are going to be able to discharge this patient in the next 24 to 48 hours. 2. Right lower lobe pneumonia. Continue with Rocephin, today is day #8. Probably we will complete the treatment for 10 days. 3. Chronic obstructive pulmonary disease, stable, not in exacerbation at this moment. Continue breathing treatment and oxygen supplementation. He is on home O2 at home around 3 L. 4. Anemia. Hemoglobin and hematocrit are stable. I will recheck the CBC in the morning. Gastroenterology Department recommended to restart aspirin and Plavix, so I will do it. 5. Type 2 diabetes, stable. He is on his home medications. I will get a hemoglobin A1c. 6. Right pleural effusion, looks better. Continue with the same management. 7. Chronic hypoxemic respiratory failure, on home O2. Continue with same management. He is breathing better. 8. Right foot blisters/ulcers. Wound care on board. Likely this patient will need more wound care as an outpatient or go to a rehab center. 9. Physical deconditioning and generalized weakness. PT, OT has been requested already. The patient has been declining to go to a rehab center, but he will think about it. cc: Alberto Be MD
[2019-06-15] MEDS: LIPITOR PO SCH (20:44)
[2019-06-16] MEDS: DUONEB (A & A) INH SCH ×6 (03:52→22:48)
[2019-06-16] MEDS: PRILOSEC PO SCH (06:51)
[2019-06-16] MEDS: DOXYCYCLINE 100 MG in NS 250 ML IV SCH ×2 (06:51→16:33)
[2019-06-16] MEDS: LOVENOX SUBQ SCH (06:52)
[2019-06-16] MEDS: HUMULIN R SUBQ SCH ×4 (06:54→20:49)
[2019-06-16] MEDS: ZAROXOLYN PO SCH (08:20)
[2019-06-16] MEDS: MIRALAX PO SCH (08:20)
[2019-06-16] MEDS: LASIX PO SCH ×2 (08:20→20:49)
[2019-06-16] MEDS: ASPIRIN EC PO SCH (08:20)
[2019-06-16] MEDS: COZAAR PO SCH (08:20)
[2019-06-16] MEDS: HEMOCYTE PLUS CAPSULE PO SCH (08:21)
[2019-06-16] MEDS: ICAR-C PO SCH ×2 (08:21→20:49)
[2019-06-16] MEDS: AMARYL PO SCH ×2 (08:21→16:33)
[2019-06-16] MEDS: PLAVIX PO SCH (08:21)
[2019-06-16] MEDS: GLUCOPHAGE PO SCH ×2 (08:21→16:33)
[2019-06-16] MEDS: ALDACTONE PO SCH ×2 (08:21→20:49)
[2019-06-16] MEDS: CYMBALTA PO SCH (08:21)
[2019-06-16] MEDS: TOPROL XL PO SCH (08:21)
[2019-06-16 08:24] LABS: HEMOGLOBIN A1C 7.2 % (4.8-6.0)
[2019-06-16 08:34] LABS: ESTIMATED GFR > 60
[2019-06-16 08:37] LABS: AGAP 11; BUN 24 mg/dL (8-22); CHLORIDE 89 mmol/L (98-107); COSMO 281; GLUCOSE 188 mg/dL (70-104); MAGNESIUM 1.4 mg/dL (1.5-2.7); PHOSPHORUS 3.3 mg/dL (2.7-4.5); SODIUM 136 mmol/L (136-145); TCO2 36 mmol/L (25-35)
[2019-06-16] MEDS ORDERED: MAGNESIUM SULFATE 2 GM/S.W.I. 2 GM/50 ML IVPB IV ONE (08:39)
[2019-06-16] MEDS: ROCEPHIN 1 GM in NS 50 ML IV SCH (10:16)
--- NOTE | 2019-06-16 15:04 | PROGRESS NOTE ---
DATE: 06/16/2019 SUBJECTIVE: This patient is feeling better compared with yesterday. He is still complaining of foot pain. Wound Care on board. He is still getting antibiotics. His shortness of breath is improving. He does not want to go to a rehab center. He would rather prefer to go home with Physical Therapy and Wound Care at home. I already discussed the case with the psychiatric social worker supervisor and everything is going to be set up for tomorrow. I will discharge this patient in the morning, to remove more fluids. I do believe this patient is noncompliant with medications and/or diet. OBJECTIVE: Vital Signs: Temperature 98, pulse 80, respiratory rate 18, blood pressure 128/44, oxygen saturation 98% on 2 L of nasal cannula. HEENT: Head normocephalic. No trauma. PERRLA. Neck: Supple. No JVD. No masses. Central trachea. Chest: Decreased breath sounds globally with some crepitus at the right base. Prolonged expiratory phase. Abdomen: Soft, nontender, nondistended. No hepatosplenomegaly. Extremities: No edema. His right foot is covered with a dressing. He has some signs of edema. It does not look infected. Some redness. He has some blisters. Wound Care on board. Neurological: Alert and oriented x3. No focal deficits. LABORATORY: Sodium 136, potassium 4, chloride 89, bicarbonate 36, BUN 24, creatinine 1, glucose 188. Calcium 9. Magnesium 1.4. ASSESSMENT AND PLAN: 1. Diastolic heart failure exacerbation. Continue with same management. He is getting good diuresis. Cardiology Department has been following this patient. Hopefully, I am going to be able to discharge this patient in the morning. 2. Right lower lobe pneumonia. Continue with Rocephin. He is also getting doxycycline. 3. Chronic obstructive pulmonary disease, stable, not in exacerbation at this moment. Continue breathing treatment and oxygen supplementation. He is on home oxygen at around 3 L. 4. Anemia. Hemoglobin and hematocrit are stable. I have restarted his aspirin and Plavix and probably he needs to follow up with Gastroenterology Department for an endoscopic exam. 5. Type 2 diabetes, stable. He is on his home medications. His hemoglobin A1c is 7.2. 6. Right pleural effusion, better. 7. Chronic hypoxemic respiratory failure, on home oxygen. Aware. 8. Right foot blisters/ulcers. Wound Care on board. He will go home and we will continue with wound care as an outpatient. 9. Physical deconditioning and generalized weakness. Physical Therapy and Occupational Therapy are on board. Will continue with same management. He has declined to go to a rehab center. cc: Alberto Be MD
--- NOTE | 2019-06-16 19:23 | PULMONOLOGY PROGRESS NOTE ---
DATE: 06/16/2019 SUBJECTIVE: The patient is awake, alert, and conversant. He denies shortness of breath today. He denies significant cough. He reports he may get to go home tomorrow. OBJECTIVE: Vital Signs: The patient has been afebrile for the last 24 hours. Blood pressure 108/45, heart rate 80, respiratory rate 21, oxygen saturation 100% on 4 L per nasal cannula. HEENT: Pupils are equal and reactive. Oropharynx appears clear. Neck: Supple. Chest: Reveals decreased breath sounds, right base. Cardiac: S1, S2. Abdomen: Soft. Extremities: Reveal loss of hair on the lower extremities consistent with peripheral vascular disease, with a blister on the right foot. LABORATORIES: No new microbiology data. Sodium 136, potassium 4.0, chloride 36, BUN 24, creatinine 1.0. IMPRESSION: A 68-year-old with: 1. Diastolic heart failure. 2. Transudative pleural effusions. 3. Chronic obstructive pulmonary disease. 4. Pneumonia. DISCUSSION: A 68-year-old with problems outlined above. Clinically, he appears to be improving. PLAN: 1. Educated about salt intake and excess water consumption. He appears to be on a restricted diet. 2. Continue oxygen for hypoxemic respiratory failure. 3. Two-view chest x-ray tomorrow to document current progress. 4. Anticipate discharge home soon. cc: Shai Reddy MD
[2019-06-16] MEDS: LIPITOR PO SCH (20:49)
[2019-06-16] MEDS: TYLENOL PO PRN (20:54)
[2019-06-17] MEDS: DUONEB (A & A) INH SCH ×2 (03:32→08:11)
[2019-06-17] MEDS: PRILOSEC PO SCH (06:10)
[2019-06-17] MEDS: LOVENOX SUBQ SCH (06:10)
[2019-06-17] MEDS: DOXYCYCLINE 100 MG in NS 250 ML IV SCH (06:10)
[2019-06-17] MEDS: HUMULIN R SUBQ SCH (06:10)
[2019-06-17 07:20] LABS: BASO# 0.01 X1000 (0.0-0.2); BASO% 0.1 % (0.0-0.8); EOS# 0.16 X1000 (0.0-0.7); EOS% 2.4 % (0.0-10.0); HEMATOCRIT 33.8 % (42.0-52.0); HEMOGLOBIN 10.4 g/dL (14.0-18.0); LYMPH# 1.19 X1000 (1.2-3.4); LYMPH% 17.8 % (20.5-51.1); MCH 28.3 PG (27-31); MCHC 30.8 g/dL (33-37); MCV 92.1 FL (81-99); MONO# 0.55 X1000 (0.11-0.59); MONO% 8.2 % (1.7-9.3); MPV 12.3 FL (7.4-10.4); NEUT# 4.76 X1000 (1.4-6.5); NEUT% 71.5 % (42.2-75.2); PLT 145 X1000 (130-400); RBC 3.67 XMIL (4.7-6.1); RDW 17.4 % (11.5-14.5); WBC 6.67 X1000 (4.8-10.8)
[2019-06-17 07:29] VITALS: BP 134/59
[2019-06-17 07:37] LABS: CALCIUM 9.2 mg/dL (8.8-10.2); CREATININE 1.2 mg/dL (0.7-1.2); POTASSIUM 4.2 mmol/L (3.5-5.1)
--- NOTE | 2019-06-17 08:13 | Diag Imaging Result Doc PS360 ---
EXAM: CHEST-2 VIEWS 06/17/2019 HISTORY: abnormal exam TECHNIQUE: PA and lateral chest COMMENT: There is ill-defined opacity in the right lower lobe which has improved since 06/14/2019. The pleural effusion which was present on the right previously has improved. There is borderline cardiomegaly. IMPRESSION: Improved right pleural effusion and basilar atelectasis versus pneumonia. Electronically signed by Gerald Taylor 06/17/2019 8:11 AM
[2019-06-17] MEDS: MIRALAX PO SCH (10:17)
[2019-06-17] MEDS: ALDACTONE PO SCH (10:17)
[2019-06-17] MEDS: ASPIRIN EC PO SCH (10:18)
[2019-06-17] MEDS: GLUCOPHAGE PO SCH (10:18)
[2019-06-17] MEDS: AMARYL PO SCH (10:18)
[2019-06-17] MEDS: ZAROXOLYN PO SCH (10:18)
[2019-06-17] MEDS: PLAVIX PO SCH (10:18)
[2019-06-17] MEDS: ICAR-C PO SCH (10:20)
[2019-06-17] MEDS: COZAAR PO SCH (10:20)
[2019-06-17] MEDS: CYMBALTA PO SCH (10:20)
[2019-06-17] MEDS: LASIX PO SCH (10:20)
[2019-06-17] MEDS: HEMOCYTE PLUS CAPSULE PO SCH (10:20)
[2019-06-17] MEDS: TOPROL XL PO SCH (10:20)
[2019-06-17] MEDS: ROCEPHIN 1 GM in NS 50 ML IV SCH (10:21)
--- NOTE | 2019-06-18 09:51 | DISCHARGE SUMMARY ---
ADMISSION DATE: 06/05/2019 DISCHARGE DATE: 06/17/2019 DIAGNOSES: 1. Diastolic heart failure exacerbation, resolved. 2. Right lower lobe pneumonia. 3. Chronic obstructive pulmonary disease with chronic O2 at 3 L nasal cannula. 4. Anemia with a stable hemoglobin 9.2 to 10.6. 5. Chronic hypoxemic respiratory failure on home O2. 6. Diabetes mellitus type 2 with an A1c of 7.2. 7. Right foot blisters and ulcers. 8. Hypertension. 9. Coronary artery disease, status post stents to the circumflex and left anterior descending. 10. Chronic atrial fibrillation, status post Watchman left atrial occlusive procedure on 03/16/2019. No longer on anticoagulation. CONSULTATIONS: 1. Dr. Israel Goode with Gastroenterology. 2. Dr. Salgado, Pulmonology. 3. Dr. Linda Walker, Cardiology. 4. Wound care. DIAGNOSTICS: 1. 06/05/2019 chest x-ray revealed right pleural effusion with basilar atelectasis and/or a small infiltrate. 2. 06/05/2019, CT of the chest with contrast revealed cardiomegaly, interstitial pulmonary edema, bilateral pleural effusions, right greater than left, severe vascular disease. 3. 06/05/2019 echocardiogram revealed normal left ventricular size, probable mid left ventricular hypertrophy. Ejection fraction is approximately 55%. There is no pericardial effusion. Aorta appears normal in visualized segments. Aortic valve is calcified with some restriction in motion. Accuracy to the degree of stenosis cannot be accurately assessed. There does not appear to be any clear evidence of insufficiency. No mitral valve prolapse. Moderate mitral regurgitation. 4. 06/06/2019 chest x-ray reveals stable chest with no change in the moderate size right pleural effusion and small left pleural effusion. 5. 06/08/2019 chest x-ray, small left pleural effusion. There is a stable small to moderate right basilar pleural effusion with some adjacent atelectasis. 6. 06/09/2019 chest x-ray, improved left pleural effusion and worsened right pleural effusion. 7. 06/10/2019, small to moderate size right pleural effusion and tiny left pleural effusion. 8. 06/11/2019 chest x-ray, moderate size right pleural effusion with small left pleural effusion. No interval improvement. 9. 06/13/2019, post thoracentesis chest x-ray. There is no evidence of pneumothorax. There is some volume loss on the right, cardiomegaly. The possibility of residual pleural fluid on the right cannot be excluded. Atelectasis plus or minus pleural effusions on the right. 10. 06/14/2019, chest x-ray, improving right basilar atelectasis, right pleural effusion. 11. 06/17/2019 chest x-ray, improved right pleural effusion and basilar atelectasis versus pneumonia. PROCEDURES: On 06/13/2019, right thoracentesis for 500 mL of clear straw-colored fluid returned. MICROBIOLOGY: 1. Urine culture revealed no growth. 2. Stool was occult blood positive. 3. Pleural fluid Gram stain revealed no bacteria seen, and pleural fluid culture revealed no growth. HOSPITAL COURSE: Mr. Titus presented to the emergency room complaining of shortness of breath. He was found to have a large right pleural effusion for which he underwent thoracentesis on the 06/13/2019 for 500 mL of fluid. He did tolerate this well. He had no complications. He was also found to be in heart failure for which he was diuresed, and he is negative 18,545 mL. Cardiology was consulted. MUGA scan revealed an EF of 71%. He was placed on Lasix, metolazone, and spironolactone by Cardiology, and he did improve. He is in chronic atrial fibrillation. Rates were controlled in the 70s to 80s range. He did have right lower lobe pneumonia. He was given Rocephin and doxycycline in the hospital, which he received 10 days of each; therefore, he will be discharged on no antibiotics. Blood sugars stayed primarily in the 180 to 230 range. We continued his metformin, and he was followed with pattern blood glucose with sliding scale insulin. We also continued his Amaryl. He was found to have a reabsorbed blister to his right heel as well as an open bulla to the dorsum of his right foot. He was followed by Wound Care. These were cleansed with normal saline and Exufiber silver. Dressing care was discussed with the patient by Dr. Hutton as well as Adalgisa Washburn, the wound care nurse. The patient was noted to be physically deconditioned as well as have generalized weakness. Rehab was recommended. The patient declined. Physical Therapy and Occupational Therapy were on board during the hospitalization. He did agree to home health and PT and OT on an outpatient basis. While in the hospital, hemoglobin ranged from 9.3 to 11.6. He did have an occult positive stool. He was evaluated by Dr. Murillo, who felt that with no signs of overt GI bleeding and stable hemoglobin and hematocrit, the patient should continue on PPIs. He started the patient on Icar-C b.i.d. as well as a multivitamin. It was felt that since there was no emergency, that the patient could continue being medically managed and once respiratory status improved and MUGA scan results were obtained, that an EGD and colonoscopy could be done on an outpatient basis. Aspirin and Plavix will need to be held for 7 days prior to this procedure, which would need to be cleared by Cardiology. DISCHARGE VITAL SIGNS: Blood pressure is 134/59 with a heart rate of 80, respirations were 18, temperature 97.4 degrees with O2 saturations 97% to 98% on 3 L nasal cannula. DISCHARGE MEDICATIONS: 1. Spironolactone 25 mg p.o. b.i.d. 2. MiraLAX 17 g p.o. daily. 3. Omeprazole 40 mg p.o. daily. 4. Toprol-XL 25 mg p.o. daily. 5. Metolazone 2.5 mg p.o. daily. 6. Metformin 1000 mg p.o. b.i.d. 7. Losartan 25 mg p.o. daily. 8. Icar-C 1 p.o. b.i.d. 9. Glimepiride 4 mg p.o. b.i.d. 10. Lasix 40 mg p.o. b.i.d. 11. Cymbalta 30 mg p.o. daily. 12. Plavix 75 mg p.o. daily. 13. Lipitor 40 at bedtime. 14. Aspirin 81 mg p.o. daily. FOLLOWUP: 1. Dr. Fabrice Elmore. He needs to call and arrange appointment in 2 weeks. 2. James Titus, his primary care provider. He needs to call and schedule an appointment. 3. Dr. Goode with Gastroenterology. Needs to call and schedule appointment in 3 to 4 weeks. 4. He will be followed by [facility]. He is being discharged home in stable condition with family members. TIME SPENT: This is a greater than 30 minute discharge. Dictated by PRISCA Mclean for Alberto Be MD cc: PRISCA Mclean MD
--- NOTE | 2019-06-19 11:33 | Extremity Venous Study ---
PROCEDURE NAME: Venous U/S Bilateral Legs - 06/14/2019 PROCEDURE: Bilateral lower extremity venous duplex, and color flow imaging study using the [employer] Vivid E9 ultrasound System with a 9 L-D transducer. REFERRING PHYSICIAN: Ben Hemphill MD DECAL MAKER: Marlena Colon T INDICATIONS: Dyspnea, rule out pulmonary embolism, and bilateral lower extremity deep venous thrombosis. FINDINGS: The right common femoral vein and its branches, deep and superficial femoral veins were satisfactorily imaged. They had flow through them and were compressible. Right popliteal vein and the deep veins below the right knee were all compressible and had flow through them. The superficial veins of the right lower extremity were compressible throughout their length. The left common femoral vein and its branches, deep and superficial femoral veins were also satisfactorily imaged. They had flow through them and were compressible. Left popliteal vein and the deep veins below the left knee were all compressible and had flow through them. The superficial veins of the left lower extremity were compressible throughout their length. INTERPRETATION: No evidence of acute deep or superficial venous thrombosis of the bilateral lower extremities. cc: MD Ben Ramon MD
== END 2019-06-17 12:10 | disposition home health service (06) | DRG 291 ==
LOC: P.ED 08:57 → SUATTDRO 14:49 → P.MEDSURG 14:49 → 3N 06-07 12:55
PROVIDERS: ATTEND Internal Medicine